=== PATIENT | female | born 1955 | race Caucasian/White ===

== ENCOUNTER 2016-07-29 17:39 | Inpatient (IN) | payer OTHER ==
[~2016-07-29] VITALS: Ht 152.4 cm; Wt 63.2 kg
[~2016-07-29 17:39] MED LIST: PERCOCET 5/31 TABLET PO; PREDNISONE10 MG PO; VALIUM5 MG PO; ZOLOFT100 MG PO
[2016-07-29 17:54] LABS: BASE EXCESS -7.7 mEq/L (-3 to +3); BICARBONATE 20.1 mEq/L (22-26); METHEMOGLOBIN 1.1 % (0-1.5); PCO2 48 mm Hg (35-45); PO2 61 mm Hg (80-100)
[2016-07-29 17:55] LABS: COMMENTS - BLOOD GASES A+C+; DEVICE MASK VENT; FI02 100 %; MODE SPONT; SITE RR; TOTAL RESP RATE 25 resp/min
[2016-07-29 17:56] LABS: pH 7.23 (7.35-7.45)
[2016-07-29 18:26] LABS: BASE EXCESS -5.6 mEq/L (-3 to +3); BICARBONATE 23.8 mEq/L (22-26); CARBOXY HGB 3.2 % (0-5); METHEMOGLOBIN 1.2 % (0-1.5); PCO2 61 mm Hg (35-45); PO2 57 mm Hg (80-100); SITE RR
[2016-07-29 18:27] LABS: COMMENTS - BLOOD GASES A+C+; DEVICE 840; FI02 100 %; MECHANICAL RATE 14 resp/min; MODE A/C; PEEP 8 CM/H20; TIDAL VOLUME 400 ML
[2016-07-29 18:36] LABS: HEMATOCRIT 45.6 % (36.0-46.0); MCH 30.1 PG (29.0-34.0); MCHC 36.2 G/DL (30.0-36.0); MCV 83.2 FL (83-99); MEAN PLAT.VOLUME 11.7 uM^3 (9.5-12.4); RBC DIS.WIDTH-CV 14.6 % (11.8-14.6); RBC DIS.WIDTH-SD 43.9 % (39-53); RED BLOOD COUNT 5.48 M/uL (3.80-5.20)
[2016-07-29 18:37] LABS: PLATELET COUNT 358 K/uL (156-360)
[2016-07-29 18:39] LABS: CHLORIDE 92 mEq/L (99-109); POTASSIUM 3.1 mEq/L (3.7-5.4); SODIUM 134 mEq/L (136-147)
[2016-07-29 18:45] LABS: GFR ESTIMATE (CALCULATED) 38 mL/min/; UREA NITROGEN (BUN) 19 mg/dL (9-23)
[2016-07-29 18:49] LABS: TROP-I INTERPRETATION POSITIVE
[2016-07-29 19:05] LABS: TROPONIN-I 59.11 ng/mL (0.0-0.30)
[2016-07-29 19:06] LABS: ANION GAP 22 MEQ/L (2-14); GLUCOSE 741 mg/dL (70-99)
[2016-07-29 20:44] LABS: PROTHROMBIN TIME 10.2 (9.2-11.2)
[2016-07-29 21:55] VITALS: BP 128/80
[2016-07-29 22:00] VITALS: BP 107/76; BP 128/80
[2016-07-29 22:15] VITALS: BP 82/63
[2016-07-29 22:46] VITALS: BP 86/50
[2016-07-29 23:15] VITALS: BP 91/72
[2016-07-29 23:21] LABS: METH RESISTANT S AUREUS PCR NEGATIVE (NEGATIVE)
[2016-07-29 23:22] LABS: PROBE CHECK PASS; SPECIMEN PROCESSING CONTROL PASS
[2016-07-30] VITALS (22 sets, daily range): BP systolic 91–143; BP diastolic 58–95
[2016-07-30 00:08] LABS: GLUCOSE 722 mg/dL (70-99)
[2016-07-30 00:19] LABS: CHLORIDE 96 mEq/L (99-109); POTASSIUM 3.2 mEq/L (3.7-5.4); SODIUM 133 mEq/L (136-147)
[2016-07-30 00:22] LABS: ANION GAP 16 MEQ/L (2-14)
[2016-07-30 00:24] LABS: GFR ESTIMATE (CALCULATED) 32 mL/min/
[2016-07-30 00:25] LABS: UREA NITROGEN (BUN) 24 mg/dL (9-23)
[2016-07-30 00:27] LABS: CREATINE KINASE 706 IU/L (1-294); TOTAL CK 706 IU/L (1-294)
[2016-07-30 00:32] LABS: CK-MB 53.4 ng/mL (0.0-4.9)
[2016-07-30 03:51] LABS: CARBON DIOXIDE (BICARBONATE) 23.4 MEQ/L (20-31)
[2016-07-30 03:55] LABS: INTER. NORMALIZED RATIO 1.1; PROTHROMBIN TIME 11.4 (9.2-11.2)
[2016-07-30 03:58] LABS: CHLORIDE 98 mEq/L (99-109); POTASSIUM 2.7 mEq/L (3.7-5.4); SODIUM 134 mEq/L (136-147)
[2016-07-30 04:02] LABS: ANION GAP 16 MEQ/L (2-14); HEMATOCRIT 38.7 % (36.0-46.0); MCH 30.1 PG (29.0-34.0); MCHC 36.4 G/DL (30.0-36.0); MCV 82.7 FL (83-99); RBC DIS.WIDTH-CV 14.4 % (11.8-14.6); RBC DIS.WIDTH-SD 42.4 % (39-53); RED BLOOD COUNT 4.68 M/uL (3.80-5.20); WHITE BLOOD COUNT 29.5 K/uL (4.1-10.2)
[2016-07-30 04:04] LABS: GFR ESTIMATE (CALCULATED) 38 mL/min/
[2016-07-30 04:05] LABS: GLUCOSE 481 mg/dL (70-99); UREA NITROGEN (BUN) 25 mg/dL (9-23)
[2016-07-30 04:23] LABS: TROP-I INTERPRETATION POSITIVE; TROPONIN-I 98.05 ng/mL (0.0-0.30)
[2016-07-30 04:47] LABS: PLATELET COUNT UNABLE TO REPORT K/uL (156-360)
[2016-07-30 04:52] LABS: POINT-OF-CARE METER ID UU13113748
[2016-07-30 07:42] LABS: POINT-OF-CARE METER ID UU13113748
[2016-07-30 07:42] LABS: POINT-OF-CARE METER ID UU13113748
[2016-07-30 07:42] LABS: POINT-OF-CARE METER ID UU13113748
[2016-07-30 07:48] LABS: Estimated Average Glucose 286 mg/dL (70-123); HEMOGLOBIN A1c (GLYCOHEMOGLOB) 11.6 % HGB (Below 5.7)
[2016-07-30 10:25] LABS: ANION GAP 17 MEQ/L (2-14); CHLORIDE 99 MEQ/L (99-109); GFR ESTIMATE (CALCULATED) 41 mL/min/; SAMPLE HEMOLYSIS CHECK 1; SAMPLE ICTERIC CHECK 0; SAMPLE LIPEMIA CHECK 0; SODIUM 137 MEQ/L (136-147); UREA NITROGEN (BUN) 24 mg/dL (9-23)
[2016-07-30 10:29] LABS: GLUCOSE 230 mg/dL (70-99); POTASSIUM 3.5 MEQ/L (3.7-5.4)
[2016-07-30] MEDS ORDERED: PREDNISONE20 MG PO (15:37)
[2016-07-30] MEDS ORDERED: PERCOCET 5/31 TABLET PO (15:37)
[2016-07-30] MEDS ORDERED: MELOXICAM7.5 MG PO (15:37)
[2016-07-30 17:16] LABS: ANION GAP 14 MEQ/L (2-14); CHLORIDE 99 MEQ/L (99-109); GFR ESTIMATE (CALCULATED) 44 mL/min/; GLUCOSE 239 mg/dL (70-99); POTASSIUM 4.1 MEQ/L (3.7-5.4); SAMPLE HEMOLYSIS CHECK 0; SAMPLE ICTERIC CHECK 0; SAMPLE LIPEMIA CHECK 0; SODIUM 138 MEQ/L (136-147); UREA NITROGEN (BUN) 23 mg/dL (9-23)
[2016-07-30 20:59] LABS: ANION GAP 12 MEQ/L (2-14); CHLORIDE 101 MEQ/L (99-109); GFR ESTIMATE (CALCULATED) 41 mL/min/; GLUCOSE 211 mg/dL (70-99); POTASSIUM 4.1 MEQ/L (3.7-5.4); SAMPLE HEMOLYSIS CHECK 0; SAMPLE ICTERIC CHECK 0; SAMPLE LIPEMIA CHECK 0; SODIUM 137 MEQ/L (136-147); UREA NITROGEN (BUN) 23 mg/dL (9-23)
[2016-07-31] VITALS (23 sets, daily range): BP systolic 94–145; BP diastolic 54–81
[2016-07-31 03:12] LABS: POINT-OF-CARE METER ID UU14174217
[2016-07-31 06:09] LABS: HEMATOCRIT 37.1 % (36.0-46.0); MCH 29.7 PG (29.0-34.0); MCHC 34.2 G/DL (30.0-36.0); RBC DIS.WIDTH-CV 14.7 % (11.8-14.6); RBC DIS.WIDTH-SD 45.7 % (39-53); RED BLOOD COUNT 4.27 M/uL (3.80-5.20)
[2016-07-31 06:10] LABS: MCV 86.9 FL (83-99)
[2016-07-31 06:46] LABS: TROP-I INTERPRETATION POSITIVE
[2016-07-31 06:54] LABS: TROPONIN-I 17.14 ng/mL (0.0-0.30)
[2016-07-31 07:24] LABS: MEAN PLAT.VOLUME 11.6 uM^3 (9.5-12.4)
[2016-07-31 07:29] LABS: PLATELET COUNT 191 K/uL (156-360)
[2016-07-31 07:39] LABS: POINT-OF-CARE METER ID UU14174217
[2016-07-31 11:07] LABS: POINT-OF-CARE METER ID UU14174217
[2016-07-31 14:56] LABS: POINT-OF-CARE METER ID UU14174217
[2016-07-31 15:23] LABS: EOSINOPHIL COUNT 0.1 K/uL (0-0.3); HEMATOCRIT 36.2 % (36.0-46.0); IMMATURE GRANULOCYTE (%) 0.4 % (0.0-0.7); IMMATURE GRANULOCYTE COUNT 0.1 K/uL; LYMPHOCYTE COUNT 2.2 K/uL (1.0-2.8); MCH 30.5 PG (29.0-34.0); MCHC 34.5 G/DL (30.0-36.0); MCV 88.3 FL (83-99); MONOCYTE (%) 7.2 % (3-12); NEUTROPHIL (%) 74.3 % (45-76); NEUTROPHIL COUNT 9.7 K/uL (1.8-6.4); PLATELET COUNT 166 K/uL (156-360); RBC DIS.WIDTH-CV 14.9 % (11.8-14.6); RBC DIS.WIDTH-SD 47.7 % (39-53); WHITE BLOOD COUNT 13.1 K/uL (4.1-10.2)
[2016-07-31 16:03] LABS: ANION GAP 19 MEQ/L (2-14); CHLORIDE 99 MEQ/L (99-109); POTASSIUM 3.3 MEQ/L (3.7-5.4); SAMPLE HEMOLYSIS CHECK 0; SAMPLE ICTERIC CHECK 0; SAMPLE LIPEMIA CHECK 0; SODIUM 142 MEQ/L (136-147)
[2016-07-31 16:11] LABS: GFR ESTIMATE (CALCULATED) 44 mL/min/; GLUCOSE 176 mg/dL (70-99); UREA NITROGEN (BUN) 25 mg/dL (9-23)
[2016-07-31 18:20] LABS: POINT-OF-CARE METER ID UU14174217
[2016-08-01] VITALS (16 sets, daily range): BP systolic 100–134; BP diastolic 50–85
[2016-08-01 00:04] LABS: POINT-OF-CARE METER ID UU14174217
[2016-08-01 02:32] LABS: POINT-OF-CARE METER ID UU14174217
[2016-08-01 03:55] LABS: EOSINOPHIL (%) 2.1 % (0-5); EOSINOPHIL COUNT 0.3 K/uL (0-0.3); HEMATOCRIT 33.9 % (36.0-46.0); IMMATURE GRANULOCYTE (%) 0.3 % (0.0-0.7); IMMATURE GRANULOCYTE COUNT 0.4 K/uL; LYMPHOCYTE COUNT 2.2 K/uL (1.0-2.8); MCH 30.2 PG (29.0-34.0); MCHC 34.5 G/DL (30.0-36.0); MCV 87.4 FL (83-99); MEAN PLAT.VOLUME 11.1 uM^3 (9.5-12.4); MONOCYTE COUNT 0.9 K/uL (0-0.8); NEUTROPHIL (%) 74.1 % (45-76); NEUTROPHIL COUNT 9.8 K/uL (1.8-6.4); PLATELET COUNT 163 K/uL (156-360); RBC DIS.WIDTH-CV 14.6 % (11.8-14.6); RBC DIS.WIDTH-SD 45.7 % (39-53); RED BLOOD COUNT 3.88 M/uL (3.80-5.20); WHITE BLOOD COUNT 13.2 K/uL (4.1-10.2)
[2016-08-01 04:12] LABS: CHLORIDE 101 mEq/L (99-109); POTASSIUM 3.2 mEq/L (3.7-5.4); SODIUM 142 mEq/L (136-147)
[2016-08-01 04:20] LABS: MAGNESIUM 1.8 mg/dL (1.3-2.7)
[2016-08-01 04:22] LABS: GLUCOSE 162 mg/dL (70-99)
[2016-08-01 04:23] LABS: ANION GAP 15 MEQ/L (2-14)
[2016-08-01 04:26] LABS: GFR ESTIMATE (CALCULATED) 41 mL/min/; UREA NITROGEN (BUN) 25 mg/dL (9-23)
[2016-08-01 05:55] LABS: POINT-OF-CARE METER ID UU14174217
[2016-08-01 08:12] LABS: POINT-OF-CARE METER ID UU14174217
[2016-08-01 12:38] LABS: POINT-OF-CARE METER ID UU13113803; POINT-OF-CARE USER ID 606021424
[2016-08-01 18:04] LABS: POINT-OF-CARE METER ID UU14174217
[2016-08-01 21:39] LABS: POINT-OF-CARE METER ID UU14174217
[2016-08-02] VITALS (10 sets, daily range): BP systolic 94–134; BP diastolic 45–66
[2016-08-02 06:20] LABS: EOSINOPHIL (%) 2.5 % (0-5); EOSINOPHIL COUNT 0.3 K/uL (0-0.3); HEMATOCRIT 34.3 % (36.0-46.0); IMMATURE GRANULOCYTE (%) 0.4 % (0.0-0.7); LYMPHOCYTE COUNT 1.8 K/uL (1.0-2.8); MCH 29.2 PG (29.0-34.0); MCHC 32.9 G/DL (30.0-36.0); MCV 88.6 FL (83-99); MEAN PLAT.VOLUME 11.4 uM^3 (9.5-12.4); MONOCYTE (%) 9.6 % (3-12); NEUTROPHIL (%) 70.5 % (45-76); NEUTROPHIL COUNT 7.5 K/uL (1.8-6.4); PLATELET COUNT 168 K/uL (156-360); RBC DIS.WIDTH-CV 14.5 % (11.8-14.6); RBC DIS.WIDTH-SD 47.1 % (39-53); RED BLOOD COUNT 3.87 M/uL (3.80-5.20); WHITE BLOOD COUNT 10.7 K/uL (4.1-10.2)
[2016-08-02 06:37] LABS: ANION GAP 11 MEQ/L (2-14); CHLORIDE 99 MEQ/L (99-109); GFR ESTIMATE (CALCULATED) 49 mL/min/; GLUCOSE 164 mg/dL (70-99); MAGNESIUM 1.5 mg/dl (1.3-2.7); SAMPLE HEMOLYSIS CHECK 0; SAMPLE ICTERIC CHECK 0; SAMPLE LIPEMIA CHECK 0; SODIUM 138 MEQ/L (136-147); UREA NITROGEN (BUN) 19 mg/dL (9-23)
[2016-08-02 06:38] LABS: POTASSIUM 4.1 MEQ/L (3.7-5.4)
[2016-08-03] VITALS (7 sets, daily range): BP systolic 95–134; BP diastolic 50–70
[2016-08-03 06:59] LABS: EOSINOPHIL (%) 4.4 % (0-5); EOSINOPHIL COUNT 0.4 K/uL (0-0.3); HEMATOCRIT 30.4 % (36.0-46.0); IMMATURE GRANULOCYTE (%) 0.4 % (0.0-0.7); LYMPHOCYTE COUNT 2.6 K/uL (1.0-2.8); MCH 29.5 PG (29.0-34.0); MCHC 33.2 G/DL (30.0-36.0); MCV 88.9 FL (83-99); MONOCYTE COUNT 0.8 K/uL (0-0.8); NEUTROPHIL COUNT 4.8 K/uL (1.8-6.4); PLATELET COUNT 176 K/uL (156-360); RBC DIS.WIDTH-CV 14.5 % (11.8-14.6); RBC DIS.WIDTH-SD 47.1 % (39-53); RED BLOOD COUNT 3.42 M/uL (3.80-5.20); WHITE BLOOD COUNT 8.6 K/uL (4.1-10.2)
[2016-08-03 07:21] LABS: ANION GAP 9 MEQ/L (2-14); CHLORIDE 101 MEQ/L (99-109); GFR ESTIMATE (CALCULATED) 49 mL/min/; GLUCOSE 139 mg/dL (70-99); MAGNESIUM 1.5 mg/dl (1.3-2.7); POTASSIUM 3.5 MEQ/L (3.7-5.4); SAMPLE HEMOLYSIS CHECK 0; SAMPLE ICTERIC CHECK 0; SAMPLE LIPEMIA CHECK 0; SODIUM 139 MEQ/L (136-147); UREA NITROGEN (BUN) 16 mg/dL (9-23)
[2016-08-03 07:51] LABS: POINT-OF-CARE METER ID UU14174225
[2016-08-03 17:33] LABS: POINT-OF-CARE METER ID UU14174225
[2016-08-03 22:15] LABS: POINT-OF-CARE METER ID UU14174225
[2016-08-04 00:27] VITALS: BP 122/66
[2016-08-04 04:12] VITALS: BP 120/73
[2016-08-04 07:01] LABS: BASOPHIL COUNT 0.1 K/uL (0-0.1); EOSINOPHIL (%) 4.3 % (0-5); EOSINOPHIL COUNT 0.3 K/uL (0-0.3); HEMATOCRIT 31.9 % (36.0-46.0); IMMATURE GRANULOCYTE (%) 0.4 % (0.0-0.7); LYMPHOCYTE COUNT 2.2 K/uL (1.0-2.8); MCH 30.1 PG (29.0-34.0); MCHC 33.5 G/DL (30.0-36.0); MCV 89.6 FL (83-99); MEAN PLAT.VOLUME 11.5 uM^3 (9.5-12.4); MONOCYTE (%) 8.3 % (3-12); MONOCYTE COUNT 0.6 K/uL (0-0.8); NEUTROPHIL (%) 55.9 % (45-76); NEUTROPHIL COUNT 4.1 K/uL (1.8-6.4); PLATELET COUNT 193 K/uL (156-360); RBC DIS.WIDTH-CV 14.4 % (11.8-14.6); RBC DIS.WIDTH-SD 46.9 % (39-53); RED BLOOD COUNT 3.56 M/uL (3.80-5.20); WHITE BLOOD COUNT 7.4 K/uL (4.1-10.2)
[2016-08-04 07:29] LABS: ANION GAP 8 MEQ/L (2-14); CHLORIDE 104 MEQ/L (99-109); GFR ESTIMATE (CALCULATED) 49 mL/min/; GLUCOSE 154 mg/dL (70-99); MAGNESIUM 1.7 mg/dl (1.3-2.7); POTASSIUM 4.1 MEQ/L (3.7-5.4); SAMPLE HEMOLYSIS CHECK 0; SAMPLE ICTERIC CHECK 0; SAMPLE LIPEMIA CHECK 0; SODIUM 140 MEQ/L (136-147); UREA NITROGEN (BUN) 12 mg/dL (9-23)
[2016-08-04 08:45] VITALS: BP 121/65
[2016-08-04 12:45] VITALS: BP 131/72
[2016-08-04 16:55] VITALS: BP 141/79
[2016-08-04 19:49] VITALS: BP 123/71
[2016-08-04 21:43] LABS: POINT-OF-CARE METER ID UU14174225
[2016-08-05 00:37] VITALS: BP 120/68
[2016-08-05 04:02] VITALS: BP 127/73
[2016-08-05 06:58] LABS: HEMATOCRIT 33.4 % (36.0-46.0); MCH 30.5 PG (29.0-34.0); MCHC 33.5 G/DL (30.0-36.0); MEAN PLAT.VOLUME 11.3 uM^3 (9.5-12.4); PLATELET COUNT 217 K/uL (156-360); RBC DIS.WIDTH-CV 14.5 % (11.8-14.6); RBC DIS.WIDTH-SD 47.6 % (39-53); RED BLOOD COUNT 3.67 M/uL (3.80-5.20); WHITE BLOOD COUNT 8.1 K/uL (4.1-10.2)
[2016-08-05 07:28] LABS: ANION GAP 9 MEQ/L (2-14); CHLORIDE 105 MEQ/L (99-109); GFR ESTIMATE (CALCULATED) 54 mL/min/; GLUCOSE 137 mg/dL (70-99); SAMPLE HEMOLYSIS CHECK 0; SAMPLE ICTERIC CHECK 0; SAMPLE LIPEMIA CHECK 0; SODIUM 142 MEQ/L (136-147); UREA NITROGEN (BUN) 11 mg/dL (9-23)
[2016-08-05 08:00] VITALS: BP 155/71
[2016-08-05 08:08] LABS: POINT-OF-CARE METER ID UU14174225
[2016-08-05 12:00] VITALS: BP 136/63
[2016-08-05 12:50] LABS: POINT-OF-CARE METER ID UU14174225
[2016-08-05 16:00] VITALS: BP 121/56
[2016-08-05 19:33] VITALS: BP 141/79
[2016-08-05 21:16] LABS: POINT-OF-CARE METER ID UU14174225
[2016-08-06 00:14] VITALS: BP 149/72
[2016-08-06 04:27] VITALS: BP 139/76
[2016-08-06 07:53] LABS: POINT-OF-CARE METER ID UU14174225
[2016-08-06 08:02] VITALS: BP 131/64
[2016-08-06 08:26] LABS: ANION GAP 12 MEQ/L (2-14); CHLORIDE 102 MEQ/L (99-109); GFR ESTIMATE (CALCULATED) 54 mL/min/; GLUCOSE 176 mg/dL (70-99); POTASSIUM 4.1 MEQ/L (3.7-5.4); SAMPLE HEMOLYSIS CHECK 0; SAMPLE ICTERIC CHECK 0; SAMPLE LIPEMIA CHECK 0; SODIUM 140 MEQ/L (136-147); UREA NITROGEN (BUN) 11 mg/dL (9-23)
[2016-08-06 11:04] VITALS: BP 125/64
[2016-08-06 11:04] LABS: POINT-OF-CARE METER ID UU14174225
[2016-08-06] MEDS ORDERED: NICOTINE PATCH1 EAC2 TD (16:10)
[2016-08-06] MEDS ORDERED: IMDUR30 MG PO (16:10)
[2016-08-06] MEDS ORDERED: NITROSTAT0.4 MG SL (16:10)
[2016-08-06] MEDS ORDERED: CLOPIDOGREL75 MG PO (16:10)
[2016-08-06] MEDS ORDERED: LOPRESSOR50 MG PO (16:11)
[2016-08-06] MEDS ORDERED: ASPIRIN81 M2 PO (16:11)
[2016-08-06] MEDS ORDERED: FUROSEMIDE40 MG PO (16:12)
[2016-08-06] MEDS ORDERED: K-DUR20 MEQ PO (16:12)
[2016-08-06] MEDS ORDERED: MELOXICAM7.5 MG PO (16:12)
[2016-08-06 16:13] LABS: POINT-OF-CARE METER ID UU14174225
[2016-08-06] MEDS ORDERED: CEFTIN500 MG PO (16:20)
== END 2016-08-06 18:07 | disposition home health service (06) | DRG 189 ==
LOC: EME 17:39 → 4WEST 19:44 → EDOF 19:44 → 4WEST 22:05 → 5SOUTH 08-02 16:02
PROVIDERS: Emergency Medicine; Hospitalist; Internal Medicine; Internal Medicine Cardiovascular Disease; Internal Medicine Critical Care Medicine; Internal Medicine Nephrology
DX: J96.01 Acute respiratory failure with hypoxia (principal); I21.4 Non-ST elevation (NSTEMI) myocardial infarction; J18.9 Pneumonia, unspecified organism; J81.0 Acute pulmonary edema; N17.9 Acute kidney failure, unspecified; I48.92 Unspecified atrial flutter; E11.22 Type 2 diabetes mellitus with diabetic chronic kidney disease; E87.6 Hypokalemia; I50.9 Heart failure, unspecified; J44.9 Chronic obstructive pulmonary disease, unspecified; I12.9 Hypertensive chronic kidney disease with stage 1 through stage 4 chronic kidney disease, or unspecified chronic kidney disease; N18.9 Chronic kidney disease, unspecified; F17.210 Nicotine dependence, cigarettes, uncomplicated; I25.5 Ischemic cardiomyopathy; I73.9 Peripheral vascular disease, unspecified; J84.10 Pulmonary fibrosis, unspecified; Z95.5 Presence of coronary angioplasty implant and graft
CPT/HCPCS: 36600; 71010; 80048; 80048 91; 80202; 82009; 82550 91; 82553; 82803; 82948; 83036; 83605; 83735; 83880; 84100; 84484; 84999; 85025; 85027; 85610; 85730; 87040; 87070; 87205; 87641; 93005; 93306; 94002; 94003; 94640; 94640 76; 94760; 94799; 99202; 99281; 99285; G0008; J0456; J0696; J1250; J1644; J1815; J1940; J2543; J2704; J3010; J3370; J3475; J3480; J7050; S0028

== ENCOUNTER 2016-10-11 08:37 | Inpatient (IN) | payer OTHER ==
[~2016-10-11] VITALS: Ht 152.4 cm; Wt 58.1 kg
[~2016-10-11 08:37] MED LIST changes: +ASPIRIN81 M2 PO; +CEFTIN500 MG PO; +CLOPIDOGREL75 MG PO; +FUROSEMIDE40 MG PO; +IMDUR30 MG PO; +K-DUR20 MEQ PO; +LOPRESSOR50 MG PO; +MELOXICAM7.5 MG PO; +NICOTINE PATCH1 EAC2 TD; +NITROSTAT0.4 MG SL; +PREDNISONE20 MG PO
[2016-10-11 12:30] VITALS: BP 140/58
[2016-10-11 12:59] LABS: POINT-OF-CARE METER ID UU13113720
[2016-10-11] MEDS ORDERED: LOPRESSOR25 MG PO (13:52)
[2016-10-11] MEDS ORDERED: HEPARIN SO5000 UNITS SC (13:54)
[2016-10-11] MEDS ORDERED: NOVOLOG PE100 UNITS/ SC (13:55)
[2016-10-11] MEDS ORDERED: LANTUS 3 M100 UNITS1 SC (13:56)
[2016-10-11] MEDS ORDERED: POLYETHYLENE GL17 GM PO (13:57)
[2016-10-11] MEDS ORDERED: LIDOCAINE700 MG TD (13:57)
[2016-10-11] MEDS ORDERED: ROSUVASTATIN CA40 MG PO (13:58)
[2016-10-11] MEDS ORDERED: ZOLOFT100 MG PO (13:59)
[2016-10-11] MEDS ORDERED: TYLENOL REGULA325 MG PO (14:02)
[2016-10-11 15:47] VITALS: BP 140/62
[2016-10-11 16:33] LABS: POINT-OF-CARE METER ID UU14174215
[2016-10-11 21:36] LABS: POINT-OF-CARE METER ID UU14174215
[2016-10-12 04:06] LABS: HEMATOCRIT 29.9 % (36.0-46.0); MCHC 31.4 G/DL (30.0-36.0); MCV 92.3 FL (83-99); MEAN PLAT.VOLUME 10.9 uM^3 (9.5-12.4); PLATELET COUNT 263 K/uL (156-360); RBC DIS.WIDTH-SD 49.9 % (39-53); RED BLOOD COUNT 3.24 M/uL (3.80-5.20); WHITE BLOOD COUNT 11.1 K/uL (4.1-10.2)
[2016-10-12 04:17] LABS: CHLORIDE 101 mEq/L (99-109); POTASSIUM 4.6 mEq/L (3.7-5.4); SODIUM 137 mEq/L (136-147)
[2016-10-12 04:20] LABS: GLUCOSE 162 mg/dL (70-99)
[2016-10-12 04:21] LABS: ANION GAP 11 MEQ/L (2-14)
[2016-10-12 04:22] LABS: TOTAL BILIRUBIN 0.6 mg/dL (0.0-1.0)
[2016-10-12 04:23] LABS: ALKALINE PHOSPHATASE 87 IU/L (3-129); GFR ESTIMATE (CALCULATED) 38 mL/min/
[2016-10-12 04:24] LABS: UREA NITROGEN (BUN) 26 mg/dL (9-23)
[2016-10-12 04:53] VITALS: BP 125/62
[2016-10-12 07:19] LABS: POINT-OF-CARE METER ID UU13113720; POINT-OF-CARE USER ID AHSSSJB31
[2016-10-12 12:05] LABS: POINT-OF-CARE METER ID UU13113720; POINT-OF-CARE USER ID AHSSSJB31
[2016-10-12 15:00] VITALS: BP 105/58
[2016-10-12 16:34] LABS: POINT-OF-CARE METER ID UU13113720
[2016-10-12 20:58] VITALS: BP 114/57
[2016-10-12 21:19] LABS: POINT-OF-CARE METER ID UU13113720
[2016-10-13 04:55] VITALS: BP 123/63
[2016-10-13 07:38] VITALS: BP 134/65
[2016-10-13 07:40] LABS: POINT-OF-CARE METER ID UU13113720
[2016-10-13 11:42] LABS: POINT-OF-CARE METER ID UU13113720
[2016-10-13 15:25] VITALS: BP 108/56
[2016-10-13 16:25] LABS: POINT-OF-CARE METER ID UU13113720
[2016-10-13 21:54] LABS: POINT-OF-CARE METER ID UU14174215
[2016-10-14 05:46] VITALS: BP 119/59
[2016-10-14 06:28] LABS: POINT-OF-CARE METER ID UU14174215
[2016-10-14 07:35] LABS: POINT-OF-CARE METER ID UU13113720
[2016-10-14 11:00] LABS: POINT-OF-CARE METER ID UU14174215
[2016-10-14 15:28] VITALS: BP 116/60
[2016-10-14 21:20] LABS: POINT-OF-CARE METER ID UU14174215; POINT-OF-CARE USER ID 610211320
[2016-10-15 05:16] LABS: POINT-OF-CARE METER ID UU14174215
[2016-10-15 05:22] LABS: BASE EXCESS -0.4 mEq/L (-3 to +3); BICARBONATE 24.1 mEq/L (22-26); CARBOXY HGB 2.6 % (0-5); COMMENTS - BLOOD GASES C+; DEVICE VM; FI02 50 %; METHEMOGLOBIN 1.7 % (0-1.5); PCO2 38 mm Hg (35-45); PO2 46 mm Hg (80-100); SITE RR; pH 7.41 (7.35-7.45)
[2016-10-15 05:42] VITALS: BP 133/93
[2016-10-15 06:04] LABS: TROP-I INTERPRETATION POSITIVE; TROPONIN-I 2.23 ng/mL (0.0-0.30)
[2016-10-15 06:21] LABS: HEMATOCRIT 26.5 % (36.0-46.0); MCH 29.2 PG (29.0-34.0); MCHC 31.7 G/DL (30.0-36.0); MEAN PLAT.VOLUME 10.6 uM^3 (9.5-12.4); RBC DIS.WIDTH-CV 15.2 % (11.8-14.6); RBC DIS.WIDTH-SD 51.3 % (39-53); RED BLOOD COUNT 2.88 M/uL (3.80-5.20)
[2016-10-15 06:43] LABS: PLATELET COUNT 371 K/uL (156-360); WHITE BLOOD COUNT 17.2 K/uL (4.1-10.2)
[2016-10-15 07:54] LABS: ALKALINE PHOSPHATASE 86 IU/L (3-129); ANION GAP 14 MEQ/L (2-14); CHLORIDE 98 MEQ/L (99-109); DIRECT BILIRUBIN 0.3 mg/dL (0.0-0.3); GFR ESTIMATE (CALCULATED) 29 mL/min/; GLUCOSE 121 mg/dL (70-99); POTASSIUM 4.7 MEQ/L (3.7-5.4); SAMPLE HEMOLYSIS CHECK 0; SAMPLE ICTERIC CHECK 0; SAMPLE LIPEMIA CHECK 0; SODIUM 135 MEQ/L (136-147); TOTAL BILIRUBIN 0.6 MG/DL (0.0-1.0); UREA NITROGEN (BUN) 34 mg/dL (9-23)
[2016-10-15] MEDS ORDERED: PLAVIX75 MG PO (11:42)
[2016-10-15] MEDS ORDERED: IMDUR30 MG PO (11:43)
[2016-10-15] MEDS ORDERED: LO-DOSE ASPIRIN81 M2 PO (11:44)
[2016-10-15] MEDS ORDERED: BASAGLAR K100 UNIT/1 SC (11:48)
[2016-10-15 13:46] LABS: POINT-OF-CARE METER ID UU13113720
== END 2016-10-15 05:53 | DRG 945 ==
LOC: 3WEST 08:37
PROVIDERS: Hospitalist; Physical Medicine & Rehabilitation Pain Medicine
PROC: F07M0ZZ Range of Motion and Joint Mobility Treatment of Musculoskeletal System - Whole Body (ICD-10-PCS; principal; 2016-10-11)
DX: R53.1 Weakness (principal); D62 Acute posthemorrhagic anemia; I13.0 Hypertensive heart and chronic kidney disease with heart failure and stage 1 through stage 4 chronic kidney disease, or unspecified chronic kidney disease; J95.89 Other postprocedural complications and disorders of respiratory system, not elsewhere classified; Z95.1 Presence of aortocoronary bypass graft; R09.02 Hypoxemia; I50.9 Heart failure, unspecified; J44.9 Chronic obstructive pulmonary disease, unspecified; J98.6 Disorders of diaphragm; Z87.891 Personal history of nicotine dependence; E11.22 Type 2 diabetes mellitus with diabetic chronic kidney disease; E78.5 Hyperlipidemia, unspecified; G89.18 Other acute postprocedural pain; E83.51 Hypocalcemia; I25.2 Old myocardial infarction; N18.3 Chronic kidney disease, stage 3 (moderate); I73.9 Peripheral vascular disease, unspecified; I25.5 Ischemic cardiomyopathy; I25.118 Atherosclerotic heart disease of native coronary artery with other forms of angina pectoris; Y83.2 Surgical operation with anastomosis, bypass or graft as the cause of abnormal reaction of the patient, or of later complication, without mention of misadventure at the time of the procedure
CPT/HCPCS: 36600; 71010; 76000; 80048; 80053; 80076; 82803; 82948; 83605; 84484; 85027; 87040; 94640; 94640 76; 94799; 97110 GO; 97530 GP; 99202; J1644; J1815

== ENCOUNTER 2016-10-15 05:18 | Inpatient (IN) | payer OTHER ==
[~2016-10-15] VITALS: Ht 152.4 cm; Wt 51.3 kg
[~2016-10-15 05:18] MED LIST changes: +HEPARIN SO5000 UNITS SC; +LANTUS 3 M100 UNITS1 SC; +LIDOCAINE700 MG TD; +LOPRESSOR25 MG PO; +NOVOLOG PE100 UNITS/ SC; +POLYETHYLENE GL17 GM PO; +ROSUVASTATIN CA40 MG PO; +TYLENOL REGULA325 MG PO
[2016-10-15 07:00] VITALS: BP 148/68
[2016-10-15 07:17] VITALS: BP 152/72
[2016-10-15 08:37] LABS: BASOPHIL COUNT 0.1 K/uL (0-0.1); EOSINOPHIL (%) 0.2 % (0-5); HEMATOCRIT 26.9 % (36.0-46.0); IMMATURE GRANULOCYTE (%) 0.8 % (0.0-0.7); IMMATURE GRANULOCYTE COUNT 0.1 K/uL; INSTRUMENT ABS NEUTROPHIL CT 15.2 K/uL; LYMPHOCYTE COUNT 0.9 K/uL (1.0-2.8); MCH 28.9 PG (29.0-34.0); MCHC 31.6 G/DL (30.0-36.0); MCV 91.5 FL (83-99); MEAN PLAT.VOLUME 10.3 uM^3 (9.5-12.4); MONOCYTE (%) 5.3 % (3-12); MONOCYTE COUNT 0.9 K/uL (0-0.8); NEUTROPHIL (%) 88.2 % (45-76); NEUTROPHIL COUNT 15.2 K/uL (1.8-6.4); PLATELET COUNT 360 K/uL (156-360); RBC DIS.WIDTH-CV 15.2 % (11.8-14.6); RED BLOOD COUNT 2.94 M/uL (3.80-5.20); WHITE BLOOD COUNT 17.2 K/uL (4.1-10.2)
[2016-10-15 08:55] LABS: ANION GAP 12 MEQ/L (2-14); CHLORIDE 98 MEQ/L (99-109); POTASSIUM 4.6 MEQ/L (3.7-5.4); SAMPLE HEMOLYSIS CHECK 0; SAMPLE ICTERIC CHECK 0; SAMPLE LIPEMIA CHECK 0; SODIUM 135 MEQ/L (136-147); TOTAL BILIRUBIN 0.6 MG/DL (0.0-1.0)
[2016-10-15 09:00] LABS: ALKALINE PHOSPHATASE 88 IU/L (3-129); GFR ESTIMATE (CALCULATED) 30 mL/min/; GLUCOSE 143 mg/dL (70-99); UREA NITROGEN (BUN) 33 mg/dL (9-23)
[2016-10-15 11:26] VITALS: BP 137/58
[2016-10-15] MEDS ORDERED: PLAVIX75 MG PO (11:42)
[2016-10-15] MEDS ORDERED: IMDUR30 MG PO (11:43)
[2016-10-15] MEDS ORDERED: LO-DOSE ASPIRIN81 M2 PO (11:44)
[2016-10-15] MEDS ORDERED: BASAGLAR K100 UNIT/1 SC (11:48)
[2016-10-15 13:39] LABS: TROP-I INTERPRETATION POSITIVE; TROPONIN-I 2.15 ng/mL (0.0-0.30)
[2016-10-15 15:33] VITALS: BP 110/75
[2016-10-15 16:08] LABS: POINT-OF-CARE METER ID UU13113698
[2016-10-15 18:57] LABS: TROP-I INTERPRETATION POSITIVE; TROPONIN-I 1.85 ng/mL (0.0-0.30)
[2016-10-15 19:17] VITALS: BP 111/55
[2016-10-15 21:23] LABS: POINT-OF-CARE METER ID UU14174216
[2016-10-15 23:30] VITALS: BP 144/63
[2016-10-16 01:10] LABS: TROP-I INTERPRETATION POSITIVE
[2016-10-16 04:10] VITALS: BP 112/55
[2016-10-16 07:23] LABS: EOSINOPHIL (%) 0.2 % (0-5); HEMATOCRIT 24.5 % (36.0-46.0); IMMATURE GRANULOCYTE (%) 0.9 % (0.0-0.7); IMMATURE GRANULOCYTE COUNT 0.1 K/uL; INSTRUMENT ABS NEUTROPHIL CT 13.8 K/uL; LYMPHOCYTE COUNT 1.3 K/uL (1.0-2.8); MCH 28.3 PG (29.0-34.0); MCV 91.1 FL (83-99); MEAN PLAT.VOLUME 10.6 uM^3 (9.5-12.4); MONOCYTE (%) 5.9 % (3-12); NEUTROPHIL (%) 84.9 % (45-76); NEUTROPHIL COUNT 13.8 K/uL (1.8-6.4); PLATELET COUNT 380 K/uL (156-360); RBC DIS.WIDTH-CV 15.1 % (11.8-14.6); RBC DIS.WIDTH-SD 49.6 % (39-53); RED BLOOD COUNT 2.69 M/uL (3.80-5.20); WHITE BLOOD COUNT 16.2 K/uL (4.1-10.2)
[2016-10-16 07:42] LABS: ANION GAP 12 MEQ/L (2-14); CHLORIDE 99 MEQ/L (99-109); GFR ESTIMATE (CALCULATED) 30 mL/min/; GLUCOSE 174 mg/dL (70-99); POTASSIUM 4.4 MEQ/L (3.7-5.4); SAMPLE HEMOLYSIS CHECK 0; SAMPLE ICTERIC CHECK 0; SAMPLE LIPEMIA CHECK 0; SODIUM 137 MEQ/L (136-147); UREA NITROGEN (BUN) 39 mg/dL (9-23)
[2016-10-16 08:00] VITALS: BP 118/59
[2016-10-16 12:00] VITALS: BP 124/79
[2016-10-16 17:27] VITALS: BP 128/72
[2016-10-16 19:43] VITALS: BP 122/59
[2016-10-16 21:42] LABS: POINT-OF-CARE METER ID UU13113698
[2016-10-16 23:30] VITALS: BP 107/55
[2016-10-17] VITALS (7 sets, daily range): BP systolic 109–122; BP diastolic 54–72
[2016-10-17 07:33] LABS: POINT-OF-CARE METER ID UU13113781
[2016-10-17 08:13] LABS: EOSINOPHIL (%) 0 % (0-5); HEMATOCRIT 25.2 % (36.0-46.0); IMMATURE GRANULOCYTE (%) 0.7 % (0.0-0.7); IMMATURE GRANULOCYTE COUNT 0.1 K/uL; INSTRUMENT ABS NEUTROPHIL CT 9.7 K/uL; LYMPHOCYTE COUNT 0.9 K/uL (1.0-2.8); MCH 28.3 PG (29.0-34.0); MCHC 30.6 G/DL (30.0-36.0); MCV 92.6 FL (83-99); MEAN PLAT.VOLUME 10.6 uM^3 (9.5-12.4); MONOCYTE (%) 4.8 % (3-12); MONOCYTE COUNT 0.5 K/uL (0-0.8); NEUTROPHIL (%) 86.2 % (45-76); NEUTROPHIL COUNT 9.7 K/uL (1.8-6.4); PLATELET COUNT 365 K/uL (156-360); RBC DIS.WIDTH-CV 14.9 % (11.8-14.6); RBC DIS.WIDTH-SD 50.1 % (39-53); RED BLOOD COUNT 2.72 M/uL (3.80-5.20); WHITE BLOOD COUNT 11.3 K/uL (4.1-10.2)
[2016-10-17 08:24] LABS: ANION GAP 15 MEQ/L (2-14); CHLORIDE 103 MEQ/L (99-109); GFR ESTIMATE (CALCULATED) 29 mL/min/; GLUCOSE 216 mg/dL (70-99); POTASSIUM 4.6 MEQ/L (3.7-5.4); SAMPLE HEMOLYSIS CHECK 0; SAMPLE ICTERIC CHECK 0; SAMPLE LIPEMIA CHECK 0; SODIUM 141 MEQ/L (136-147); UREA NITROGEN (BUN) 45 mg/dL (9-23)
[2016-10-17 11:18] LABS: POINT-OF-CARE METER ID UU13113781
[2016-10-17 16:29] LABS: POINT-OF-CARE METER ID UU13113781
[2016-10-17 20:03] LABS: METH RESISTANT S AUREUS PCR POSITIVE (NEGATIVE); PROBE CHECK PASS
[2016-10-18 04:00] VITALS: BP 134/63
[2016-10-18 07:09] LABS: EOSINOPHIL (%) 0 % (0-5); HEMATOCRIT 25.8 % (36.0-46.0); IMMATURE GRANULOCYTE (%) 0.8 % (0.0-0.7); IMMATURE GRANULOCYTE COUNT 0.1 K/uL; INSTRUMENT ABS NEUTROPHIL CT 12.1 K/uL; MCH 28.1 PG (29.0-34.0); MCHC 30.6 G/DL (30.0-36.0); MCV 91.8 FL (83-99); MEAN PLAT.VOLUME 10.7 uM^3 (9.5-12.4); MONOCYTE (%) 4.8 % (3-12); MONOCYTE COUNT 0.7 K/uL (0-0.8); NEUTROPHIL (%) 87.3 % (45-76); NEUTROPHIL COUNT 12.1 K/uL (1.8-6.4); PLATELET COUNT 438 K/uL (156-360); RBC DIS.WIDTH-CV 14.9 % (11.8-14.6); RBC DIS.WIDTH-SD 49.9 % (39-53); RED BLOOD COUNT 2.81 M/uL (3.80-5.20); WHITE BLOOD COUNT 13.8 K/uL (4.1-10.2)
[2016-10-18 07:26] VITALS: BP 132/65
[2016-10-18 07:34] LABS: ANION GAP 15 MEQ/L (2-14); CHLORIDE 104 MEQ/L (99-109); GFR ESTIMATE (CALCULATED) 27 mL/min/; GLUCOSE 278 mg/dL (70-99); POTASSIUM 4.4 MEQ/L (3.7-5.4); SAMPLE HEMOLYSIS CHECK 0; SAMPLE ICTERIC CHECK 0; SAMPLE LIPEMIA CHECK 0; SODIUM 142 MEQ/L (136-147); UREA NITROGEN (BUN) 50 mg/dL (9-23)
[2016-10-18 11:07] VITALS: BP 130/60
[2016-10-18 11:40] LABS: POINT-OF-CARE METER ID UU14174216
[2016-10-18 19:52] LABS: ADD MIUA? YES; BILIRUBIN NEGATIVE; BLOOD NEGATIVE; COLOR YELLOW ((YELLOW)); GLUCOSE (STRIP) NEGATIVE; KETONES NEGATIVE; LEUKOCYTES NEGATIVE; NITRITE NEGATIVE; PROTEIN (STRIP) 30; SPECIFIC GRAVITY 1.021 (1.000-1.030); UROBILINOGEN 0.2 MG/DL (0.2-1.0)
[2016-10-18 20:00] VITALS: BP 96/50
[2016-10-18 20:14] LABS: BACTERIA NONE SEEN /HPF; EPITHELIAL CELLS 1+ /HPF; HYALINE CASTS 0-5 /LPF; MUCUS TRACE /LPF; RED BLOOD CELLS 0-5 /HPF (0-5); WHITE BLOOD CELLS 0-5 /HPF (0-5)
[2016-10-18 20:28] LABS: UR CREATININE CONCENTRATION 87.1 MG/DL
[2016-10-18 21:51] LABS: POINT-OF-CARE METER ID UU14174216
[2016-10-18 23:55] VITALS: BP 122/60
[2016-10-19 04:00] VITALS: BP 124/64
[2016-10-19 06:58] LABS: EOSINOPHIL (%) 0.1 % (0-5); HEMATOCRIT 27.6 % (36.0-46.0); IMMATURE GRANULOCYTE (%) 0.9 % (0.0-0.7); IMMATURE GRANULOCYTE COUNT 0.1 K/uL; INSTRUMENT ABS NEUTROPHIL CT 11.6 K/uL; MCHC 30.8 G/DL (30.0-36.0); MCV 90.8 FL (83-99); MEAN PLAT.VOLUME 10.5 uM^3 (9.5-12.4); MONOCYTE (%) 4.3 % (3-12); MONOCYTE COUNT 0.6 K/uL (0-0.8); NEUTROPHIL (%) 86.9 % (45-76); NEUTROPHIL COUNT 11.6 K/uL (1.8-6.4); NRBC (%) 0.1 /100 WBC (0-0); PLATELET COUNT 510 K/uL (156-360); RBC DIS.WIDTH-CV 14.8 % (11.8-14.6); RBC DIS.WIDTH-SD 49.1 % (39-53); RED BLOOD COUNT 3.04 M/uL (3.80-5.20); WHITE BLOOD COUNT 13.4 K/uL (4.1-10.2)
[2016-10-19 07:30] VITALS: BP 120/62
[2016-10-19 07:35] LABS: POINT-OF-CARE METER ID UU14174216
[2016-10-19 07:35] LABS: ANION GAP 11 MEQ/L (2-14); CHLORIDE 104 MEQ/L (99-109); GFR ESTIMATE (CALCULATED) 30 mL/min/; GLUCOSE 213 mg/dL (70-99); MAGNESIUM 2.3 mg/dl (1.3-2.7); POTASSIUM 4.4 MEQ/L (3.7-5.4); SAMPLE HEMOLYSIS CHECK 0; SAMPLE ICTERIC CHECK 0; SAMPLE LIPEMIA CHECK 0; SODIUM 140 MEQ/L (136-147); UREA NITROGEN (BUN) 55 mg/dL (9-23); URIC ACID 6.6 mg/dL (3.1-9.2)
[2016-10-19 11:30] VITALS: BP 114/64
[2016-10-19 11:31] LABS: POINT-OF-CARE METER ID UU14174216
[2016-10-19 16:35] LABS: POINT-OF-CARE METER ID UU14174216
[2016-10-19 16:42] VITALS: BP 112/68
[2016-10-19 20:00] VITALS: BP 126/60
[2016-10-19 21:13] LABS: POINT-OF-CARE METER ID UU14174216
[2016-10-19 23:55] VITALS: BP 118/60
[2016-10-20 04:00] VITALS: BP 116/64
[2016-10-20 07:08] LABS: EOSINOPHIL (%) 0.1 % (0-5); IMMATURE GRANULOCYTE (%) 0.8 % (0.0-0.7); IMMATURE GRANULOCYTE COUNT 0.1 K/uL; INSTRUMENT ABS NEUTROPHIL CT 10.4 K/uL; LYMPHOCYTE COUNT 0.9 K/uL (1.0-2.8); MCH 27.8 PG (29.0-34.0); MCV 92.6 FL (83-99); MEAN PLAT.VOLUME 10.1 uM^3 (9.5-12.4); MONOCYTE (%) 3.2 % (3-12); MONOCYTE COUNT 0.4 K/uL (0-0.8); NEUTROPHIL COUNT 10.4 K/uL (1.8-6.4); NRBC (%) 0.2 /100 WBC (0-0); PLATELET COUNT 511 K/uL (156-360); RBC DIS.WIDTH-CV 15.1 % (11.8-14.6); RBC DIS.WIDTH-SD 51.5 % (39-53); RED BLOOD COUNT 3.24 M/uL (3.80-5.20); WHITE BLOOD COUNT 11.8 K/uL (4.1-10.2)
[2016-10-20 07:28] LABS: ANION GAP 11 MEQ/L (2-14); CHLORIDE 107 MEQ/L (99-109); GFR ESTIMATE (CALCULATED) 38 mL/min/; GLUCOSE 147 mg/dL (70-99); SAMPLE HEMOLYSIS CHECK 0; SAMPLE ICTERIC CHECK 0; SAMPLE LIPEMIA CHECK 0; SODIUM 143 MEQ/L (136-147); UREA NITROGEN (BUN) 51 mg/dL (9-23)
[2016-10-20 07:38] LABS: POINT-OF-CARE METER ID UU13113698
[2016-10-20 08:26] VITALS: BP 130/74
[2016-10-20 11:29] LABS: POINT-OF-CARE METER ID UU13113698
[2016-10-20 12:29] VITALS: BP 138/66
[2016-10-20 16:43] LABS: POINT-OF-CARE METER ID UU13113698
[2016-10-20 17:02] VITALS: BP 117/58
[2016-10-20 19:10] VITALS: BP 143/62
[2016-10-20 21:01] LABS: POINT-OF-CARE METER ID UU13113698
[2016-10-21 00:20] VITALS: BP 136/62
[2016-10-21 04:10] VITALS: BP 159/67
[2016-10-21 07:08] LABS: ANION GAP 10 MEQ/L (2-14); CHLORIDE 107 MEQ/L (99-109); GFR ESTIMATE (CALCULATED) 41 mL/min/; GLUCOSE 181 mg/dL (70-99); POTASSIUM 4.4 MEQ/L (3.7-5.4); SAMPLE HEMOLYSIS CHECK 0; SAMPLE ICTERIC CHECK 0; SAMPLE LIPEMIA CHECK 0; SODIUM 142 MEQ/L (136-147); UREA NITROGEN (BUN) 53 mg/dL (9-23)
[2016-10-21 08:03] LABS: POINT-OF-CARE METER ID UU14174216; POINT-OF-CARE USER ID ENVKC36
[2016-10-21 08:30] VITALS: BP 125/78
[2016-10-21 11:34] LABS: POINT-OF-CARE METER ID UU14174216; POINT-OF-CARE USER ID ENVKC36
[2016-10-21 11:48] VITALS: BP 136/72
[2016-10-21 16:22] LABS: POINT-OF-CARE METER ID UU14174216; POINT-OF-CARE USER ID ENVKC36
[2016-10-21 18:00] LABS: POINT-OF-CARE METER ID UU13113698
[2016-10-21 19:10] VITALS: BP 122/62
[2016-10-21 21:18] LABS: POINT-OF-CARE METER ID UU14174216
[2016-10-22] VITALS (10 sets, daily range): BP systolic 116–154; BP diastolic 51–76
[2016-10-22 07:47] LABS: POINT-OF-CARE METER ID UU14174216; POINT-OF-CARE USER ID ENVKC36
[2016-10-22 09:17] LABS: EOSINOPHIL (%) 0.1 % (0-5); HEMATOCRIT 30.5 % (36.0-46.0); IMMATURE GRANULOCYTE (%) 0.9 % (0.0-0.7); IMMATURE GRANULOCYTE COUNT 0.2 K/uL; LYMPHOCYTE COUNT 1.7 K/uL (1.0-2.8); MCH 27.6 PG (29.0-34.0); MCHC 29.5 G/DL (30.0-36.0); MCV 93.6 FL (83-99); MONOCYTE (%) 3.9 % (3-12); MONOCYTE COUNT 0.8 K/uL (0-0.8); NEUTROPHIL (%) 86.6 % (45-76); NRBC (%) 0.2 /100 WBC (0-0); PLATELET COUNT 647 K/uL (156-360); RBC DIS.WIDTH-CV 15.4 % (11.8-14.6); RBC DIS.WIDTH-SD 52.1 % (39-53); RED BLOOD COUNT 3.26 M/uL (3.80-5.20)
[2016-10-22 09:22] LABS: WHITE BLOOD COUNT 20.8 K/uL (4.1-10.2)
[2016-10-22 09:43] LABS: ANION GAP 9 MEQ/L (2-14); CHLORIDE 109 MEQ/L (99-109); GFR ESTIMATE (CALCULATED) 44 mL/min/; GLUCOSE 203 mg/dL (70-99); POTASSIUM 4.6 MEQ/L (3.7-5.4); SAMPLE HEMOLYSIS CHECK 0; SAMPLE ICTERIC CHECK 0; SAMPLE LIPEMIA CHECK 0; SODIUM 144 MEQ/L (136-147); UREA NITROGEN (BUN) 51 mg/dL (9-23)
[2016-10-22 12:31] LABS: POINT-OF-CARE METER ID UU14162636
[2016-10-22 17:15] LABS: POINT-OF-CARE METER ID UU14162636
[2016-10-22 22:46] LABS: POINT-OF-CARE METER ID UU13113731; POINT-OF-CARE USER ID PHATLC
[2016-10-23] VITALS (21 sets, daily range): BP systolic 103–164; BP diastolic 43–82
[2016-10-23 06:02] LABS: ANION GAP 8 MEQ/L (2-14); CHLORIDE 109 MEQ/L (99-109); GFR ESTIMATE (CALCULATED) 49 mL/min/; POTASSIUM 4.7 MEQ/L (3.7-5.4); SAMPLE HEMOLYSIS CHECK 0; SAMPLE ICTERIC CHECK 0; SAMPLE LIPEMIA CHECK 0; SODIUM 146 MEQ/L (136-147); UREA NITROGEN (BUN) 46 mg/dL (9-23)
[2016-10-23 06:07] LABS: GLUCOSE 114 mg/dL (70-99)
[2016-10-23 06:18] LABS: INFLUENZA A VIRAL ANTIGEN NEGATIVE; INFLUENZA B VIRAL ANTIGEN NEGATIVE
[2016-10-23 06:56] LABS: EOSINOPHIL (%) 0.1 % (0-5); HEMATOCRIT 27.6 % (36.0-46.0); IMMATURE GRANULOCYTE (%) 0.7 % (0.0-0.7); IMMATURE GRANULOCYTE COUNT 0.1 K/uL; INSTRUMENT ABS NEUTROPHIL CT 9.9 K/uL; MCH 27.2 PG (29.0-34.0); MCHC 29.7 G/DL (30.0-36.0); MCV 91.7 FL (83-99); MONOCYTE (%) 4.6 % (3-12); MONOCYTE COUNT 0.5 K/uL (0-0.8); NEUTROPHIL (%) 85.6 % (45-76); NEUTROPHIL COUNT 9.9 K/uL (1.8-6.4); RBC DIS.WIDTH-CV 15.3 % (11.8-14.6); RBC DIS.WIDTH-SD 50.6 % (39-53); RED BLOOD COUNT 3.01 M/uL (3.80-5.20)
[2016-10-23 07:00] LABS: PLAT.SUFFICIENCY INCREASED; PLATELET CLUMPS PRESENT - PLATELET COUNT APPEARS INCREASED
[2016-10-23 07:01] LABS: PLATELET COUNT UNABLE TO REPORT K/uL (156-360); WHITE BLOOD COUNT 11.6 K/uL (4.1-10.2)
[2016-10-23 08:23] LABS: POINT-OF-CARE METER ID UU13113803
[2016-10-23 12:02] LABS: POINT-OF-CARE METER ID UU13113803
[2016-10-23 17:11] LABS: POINT-OF-CARE METER ID UU13113803
[2016-10-23 22:04] LABS: POINT-OF-CARE METER ID UU14174217
[2016-10-24] VITALS (11 sets, daily range): BP systolic 118–154; BP diastolic 38–69
[2016-10-24 05:56] LABS: EOSINOPHIL (%) 0.1 % (0-5); HEMATOCRIT 27.4 % (36.0-46.0); IMMATURE GRANULOCYTE (%) 0.4 % (0.0-0.7); IMMATURE GRANULOCYTE COUNT 0.1 K/uL; INSTRUMENT ABS NEUTROPHIL CT 11.3 K/uL; LYMPHOCYTE COUNT 0.9 K/uL (1.0-2.8); MCH 27.3 PG (29.0-34.0); MCHC 30.3 G/DL (30.0-36.0); MCV 90.1 FL (83-99); MEAN PLAT.VOLUME 10.2 uM^3 (9.5-12.4); MONOCYTE COUNT 0.6 K/uL (0-0.8); NEUTROPHIL (%) 87.7 % (45-76); NEUTROPHIL COUNT 11.3 K/uL (1.8-6.4); RBC DIS.WIDTH-CV 15.4 % (11.8-14.6); RBC DIS.WIDTH-SD 50.4 % (39-53); RED BLOOD COUNT 3.04 M/uL (3.80-5.20); WHITE BLOOD COUNT 12.8 K/uL (4.1-10.2)
[2016-10-24 06:10] LABS: CHLORIDE 105 MEQ/L (99-109); PLATELET COUNT 442 K/uL (156-360); POTASSIUM 3.8 MEQ/L (3.7-5.4); SODIUM 144 MEQ/L (136-147)
[2016-10-24 06:55] LABS: ANION GAP 12 MEQ/L (2-14); GFR ESTIMATE (CALCULATED) 54 mL/min/; SAMPLE HEMOLYSIS CHECK 0; SAMPLE ICTERIC CHECK 0; SAMPLE LIPEMIA CHECK 0; UREA NITROGEN (BUN) 41 mg/dL (9-23)
[2016-10-24 07:03] LABS: GLUCOSE 215 mg/dL (70-99)
[2016-10-24 08:15] LABS: POINT-OF-CARE METER ID UU13113803
[2016-10-24 13:00] LABS: POINT-OF-CARE METER ID UU14174217
[2016-10-24 17:46] LABS: POINT-OF-CARE METER ID UU14174217
[2016-10-24 22:19] LABS: POINT-OF-CARE METER ID UU13113731
[2016-10-25] VITALS (14 sets, daily range): BP systolic 105–170; BP diastolic 47–83
[2016-10-25 07:43] LABS: POINT-OF-CARE METER ID UU13113731
[2016-10-25 12:33] LABS: POINT-OF-CARE METER ID UU13113731
[2016-10-26] VITALS (8 sets, daily range): BP systolic 113–137; BP diastolic 51–67
[2016-10-26 03:11] LABS: POINT-OF-CARE METER ID UU14162636
[2016-10-26 09:07] LABS: POINT-OF-CARE METER ID UU13113803
[2016-10-26 12:03] LABS: ANION GAP 9 MEQ/L (2-14); CHLORIDE 103 MEQ/L (99-109); GFR ESTIMATE (CALCULATED) > 59 mL/min/; GLUCOSE 276 mg/dL (70-99); POTASSIUM 3.3 MEQ/L (3.7-5.4); SAMPLE HEMOLYSIS CHECK 0; SAMPLE ICTERIC CHECK 0; SAMPLE LIPEMIA CHECK 0; SODIUM 141 MEQ/L (136-147); UREA NITROGEN (BUN) 36 mg/dL (9-23)
[2016-10-26 12:15] LABS: POINT-OF-CARE METER ID UU13113803
[2016-10-26 12:48] LABS: EOSINOPHIL (%) 0.4 % (0-5); EOSINOPHIL COUNT 0.1 K/uL (0-0.3); IMMATURE GRANULOCYTE (%) 0.7 % (0.0-0.7); IMMATURE GRANULOCYTE COUNT 0.1 K/uL; INSTRUMENT ABS NEUTROPHIL CT 12.9 K/uL; LYMPHOCYTE COUNT 1.1 K/uL (1.0-2.8); MCH 26.6 PG (29.0-34.0); MCHC 29.3 G/DL (30.0-36.0); MCV 90.6 FL (83-99); MEAN PLAT.VOLUME 10.6 uM^3 (9.5-12.4); MONOCYTE (%) 5.7 % (3-12); MONOCYTE COUNT 0.9 K/uL (0-0.8); NEUTROPHIL (%) 85.8 % (45-76); NEUTROPHIL COUNT 12.9 K/uL (1.8-6.4); PLATELET COUNT 378 K/uL (156-360); RBC DIS.WIDTH-CV 15.3 % (11.8-14.6); RBC DIS.WIDTH-SD 50.8 % (39-53)
[2016-10-27] VITALS (12 sets, daily range): BP systolic 112–165; BP diastolic 53–72
[2016-10-27 05:41] LABS: EOSINOPHIL (%) 0 % (0-5); HEMATOCRIT 26.5 % (36.0-46.0); IMMATURE GRANULOCYTE (%) 0.5 % (0.0-0.7); IMMATURE GRANULOCYTE COUNT 0.1 K/uL; INSTRUMENT ABS NEUTROPHIL CT 9.8 K/uL; LYMPHOCYTE COUNT 0.6 K/uL (1.0-2.8); MCH 27.1 PG (29.0-34.0); MCHC 30.2 G/DL (30.0-36.0); MCV 89.8 FL (83-99); MEAN PLAT.VOLUME 10.6 uM^3 (9.5-12.4); MONOCYTE (%) 4.6 % (3-12); MONOCYTE COUNT 0.5 K/uL (0-0.8); NEUTROPHIL (%) 89.3 % (45-76); NEUTROPHIL COUNT 9.8 K/uL (1.8-6.4); PLATELET COUNT 324 K/uL (156-360); RBC DIS.WIDTH-CV 15.4 % (11.8-14.6); RBC DIS.WIDTH-SD 50.3 % (39-53); RED BLOOD COUNT 2.95 M/uL (3.80-5.20)
[2016-10-27 06:15] LABS: ANION GAP 9 MEQ/L (2-14); CHLORIDE 105 MEQ/L (99-109); GFR ESTIMATE (CALCULATED) > 59 mL/min/; GLUCOSE 279 mg/dL (70-99); POTASSIUM 3.6 MEQ/L (3.7-5.4); SAMPLE HEMOLYSIS CHECK 0; SAMPLE ICTERIC CHECK 0; SAMPLE LIPEMIA CHECK 0; SODIUM 142 MEQ/L (136-147); UREA NITROGEN (BUN) 35 mg/dL (9-23)
[2016-10-27 12:51] LABS: POINT-OF-CARE METER ID UU14162636
[2016-10-27 16:53] LABS: POINT-OF-CARE METER ID UU14174217
[2016-10-27 22:54] LABS: POINT-OF-CARE METER ID UU14162636
[2016-10-28] VITALS (12 sets, daily range): BP systolic 112–163; BP diastolic 52–69
[2016-10-28 05:51] LABS: MCH 26.7 PG (29.0-34.0); MCV 89.1 FL (83-99); MEAN PLAT.VOLUME 10.4 uM^3 (9.5-12.4); PLATELET COUNT 358 K/uL (156-360); RBC DIS.WIDTH-CV 15.8 % (11.8-14.6); RBC DIS.WIDTH-SD 50.6 % (39-53); RED BLOOD COUNT 3.48 M/uL (3.80-5.20); WHITE BLOOD COUNT 11.6 K/uL (4.1-10.2)
[2016-10-28 06:37] LABS: ANION GAP 9 MEQ/L (2-14); CHLORIDE 103 MEQ/L (99-109); GFR ESTIMATE (CALCULATED) > 59 mL/min/; GLUCOSE 195 mg/dL (70-99); POTASSIUM 4.2 MEQ/L (3.7-5.4); SAMPLE HEMOLYSIS CHECK 0; SAMPLE ICTERIC CHECK 0; SAMPLE LIPEMIA CHECK 0; SODIUM 142 MEQ/L (136-147); UREA NITROGEN (BUN) 36 mg/dL (9-23)
[2016-10-28 12:42] LABS: POINT-OF-CARE METER ID UU13113803
[2016-10-28 17:57] LABS: POINT-OF-CARE METER ID UU14162636
[2016-10-28 21:30] LABS: POINT-OF-CARE METER ID UU14162636
[2016-10-28 23:18] LABS: C DIFF TOXIN NEGATIVE (NEGATIVE)
[2016-10-28 23:19] LABS: PROBE CHECK PASS; SPECIMEN PROCESSING CONTROL PASS
[2016-10-29] VITALS (12 sets, daily range): BP systolic 112–165; BP diastolic 51–89
[2016-10-29 06:00] LABS: HEMATOCRIT 31.8 % (36.0-46.0); MCH 26.8 PG (29.0-34.0); MCHC 29.9 G/DL (30.0-36.0); MCV 89.6 FL (83-99); MEAN PLAT.VOLUME 10.5 uM^3 (9.5-12.4); PLATELET COUNT 369 K/uL (156-360); RBC DIS.WIDTH-CV 15.9 % (11.8-14.6); RBC DIS.WIDTH-SD 51.9 % (39-53); RED BLOOD COUNT 3.55 M/uL (3.80-5.20); WHITE BLOOD COUNT 12.5 K/uL (4.1-10.2)
[2016-10-29 06:34] LABS: ANION GAP 10 MEQ/L (2-14); CHLORIDE 108 MEQ/L (99-109); GFR ESTIMATE (CALCULATED) 54 mL/min/; GLUCOSE 165 mg/dL (70-99); POTASSIUM 3.8 MEQ/L (3.7-5.4); SAMPLE HEMOLYSIS CHECK 0; SAMPLE ICTERIC CHECK 0; SAMPLE LIPEMIA CHECK 0; SODIUM 146 MEQ/L (136-147); UREA NITROGEN (BUN) 40 mg/dL (9-23)
[2016-10-29 12:42] LABS: POINT-OF-CARE METER ID UU14162636
[2016-10-30 04:00] VITALS: BP 171/83
[2016-10-30 08:15] LABS: POINT-OF-CARE USER ID NUTSLF44
[2016-10-30 08:36] LABS: EOSINOPHIL (%) 0.1 % (0-5); HEMATOCRIT 29.9 % (36.0-46.0); IMMATURE GRANULOCYTE (%) 0.6 % (0.0-0.7); IMMATURE GRANULOCYTE COUNT 0.1 K/uL; INSTRUMENT ABS NEUTROPHIL CT 12.2 K/uL; LYMPHOCYTE COUNT 1.3 K/uL (1.0-2.8); MCH 26.6 PG (29.0-34.0); MCHC 29.1 G/DL (30.0-36.0); MCV 91.4 FL (83-99); MEAN PLAT.VOLUME 10.3 uM^3 (9.5-12.4); MONOCYTE (%) 7.5 % (3-12); MONOCYTE COUNT 1.1 K/uL (0-0.8); NEUTROPHIL COUNT 12.2 K/uL (1.8-6.4); PLATELET COUNT 291 K/uL (156-360); RBC DIS.WIDTH-CV 16.1 % (11.8-14.6); RBC DIS.WIDTH-SD 52.8 % (39-53); RED BLOOD COUNT 3.27 M/uL (3.80-5.20); WHITE BLOOD COUNT 14.7 K/uL (4.1-10.2)
[2016-10-30 09:00] VITALS: BP 134/78
[2016-10-30 09:07] LABS: ANION GAP 8 MEQ/L (2-14); CHLORIDE 106 MEQ/L (99-109); GFR ESTIMATE (CALCULATED) > 59 mL/min/; GLUCOSE 200 mg/dL (70-99); POTASSIUM 3.5 MEQ/L (3.7-5.4); SAMPLE HEMOLYSIS CHECK 0; SAMPLE ICTERIC CHECK 0; SAMPLE LIPEMIA CHECK 0; SODIUM 142 MEQ/L (136-147); UREA NITROGEN (BUN) 39 mg/dL (9-23)
[2016-10-30 11:57] LABS: POINT-OF-CARE USER ID NUTSLF44
[2016-10-30 12:00] VITALS: BP 175/79
[2016-10-30 16:00] VITALS: BP 131/64
[2016-10-30 19:46] VITALS: BP 142/65
[2016-10-30 20:45] LABS: POINT-OF-CARE METER ID UU14174216
[2016-10-31] VITALS: BP 140/64
[2016-10-31 03:00] VITALS: BP 140/67
[2016-10-31 05:58] LABS: EOSINOPHIL (%) 0.1 % (0-5); HEMATOCRIT 29.6 % (36.0-46.0); IMMATURE GRANULOCYTE (%) 0.6 % (0.0-0.7); IMMATURE GRANULOCYTE COUNT 0.1 K/uL; INSTRUMENT ABS NEUTROPHIL CT 11.6 K/uL; LYMPHOCYTE COUNT 1.1 K/uL (1.0-2.8); MCH 27.1 PG (29.0-34.0); MCHC 30.1 G/DL (30.0-36.0); MEAN PLAT.VOLUME 10.3 uM^3 (9.5-12.4); MONOCYTE (%) 5.7 % (3-12); MONOCYTE COUNT 0.8 K/uL (0-0.8); NEUTROPHIL (%) 85.4 % (45-76); NEUTROPHIL COUNT 11.6 K/uL (1.8-6.4); PLATELET COUNT 305 K/uL (156-360); RBC DIS.WIDTH-CV 16.4 % (11.8-14.6); RBC DIS.WIDTH-SD 52.7 % (39-53); RED BLOOD COUNT 3.29 M/uL (3.80-5.20); WHITE BLOOD COUNT 13.5 K/uL (4.1-10.2)
[2016-10-31 06:33] LABS: ANION GAP 8 MEQ/L (2-14); CHLORIDE 107 MEQ/L (99-109); GFR ESTIMATE (CALCULATED) 54 mL/min/; GLUCOSE 142 mg/dL (70-99); POTASSIUM 3.4 MEQ/L (3.7-5.4); SAMPLE HEMOLYSIS CHECK 0; SAMPLE ICTERIC CHECK 0; SAMPLE LIPEMIA CHECK 0; SODIUM 146 MEQ/L (136-147); UREA NITROGEN (BUN) 36 mg/dL (9-23)
[2016-10-31 08:00] LABS: POINT-OF-CARE METER ID UU14174216; POINT-OF-CARE USER ID ENVKC36
[2016-10-31 09:00] VITALS: BP 142/64
[2016-10-31 11:50] LABS: POINT-OF-CARE METER ID UU14174216; POINT-OF-CARE USER ID ENVKC36
[2016-10-31 12:00] VITALS: BP 125/58
[2016-10-31] MEDS ORDERED: LEVEMIR100 UNIT/2 SC (13:29)
[2016-10-31] MEDS ORDERED: FUROSEMIDE20 MG PO (13:30)
[2016-10-31] MEDS ORDERED: PREDNISONE10 MG PO (13:30)
[2016-10-31] MEDS ORDERED: NOVOLOG PE100 UNITS/ SC (13:30)
[2016-10-31] MEDS ORDERED: MYCOPHENOLATE250 MG PO (13:54)
== END 2016-10-31 14:54 | disposition designated cancer center or children's hospital (05) | DRG 189 ==
LOC: 4EAST 05:18 → 4WEST 05:56 → 4EAST 10-29 16:40
PROVIDERS: Anesthesiology; Hospitalist; Internal Medicine; Internal Medicine Cardiovascular Disease; Internal Medicine Critical Care Medicine; Internal Medicine Nephrology; Student in an Organized Health Care Education/Training Program
PROC: 5A09358 Assistance with Respiratory Ventilation, Less than 24 Consecutive Hours, Intermittent Positive Airway Pressure (ICD-10-PCS; principal; 2016-10-22)
DX: J96.01 Acute respiratory failure with hypoxia (principal); J84.114 Acute interstitial pneumonitis; T82.897A Other specified complication of cardiac prosthetic devices, implants and grafts, initial encounter; J98.6 Disorders of diaphragm; Y83.2 Surgical operation with anastomosis, bypass or graft as the cause of abnormal reaction of the patient, or of later complication, without mention of misadventure at the time of the procedure; I13.0 Hypertensive heart and chronic kidney disease with heart failure and stage 1 through stage 4 chronic kidney disease, or unspecified chronic kidney disease; I50.43 Acute on chronic combined systolic (congestive) and diastolic (congestive) heart failure; J18.9 Pneumonia, unspecified organism; N17.9 Acute kidney failure, unspecified; N18.3 Chronic kidney disease, stage 3 (moderate); E11.22 Type 2 diabetes mellitus with diabetic chronic kidney disease; I73.9 Peripheral vascular disease, unspecified; I25.10 Atherosclerotic heart disease of native coronary artery without angina pectoris; I25.5 Ischemic cardiomyopathy; I08.1 Rheumatic disorders of both mitral and tricuspid valves; I27.2 Other secondary pulmonary hypertension; J44.9 Chronic obstructive pulmonary disease, unspecified; E78.5 Hyperlipidemia, unspecified; G89.18 Other acute postprocedural pain; I25.2 Old myocardial infarction; Z79.1 Long term (current) use of non-steroidal anti-inflammatories (NSAID); Z66 Do not resuscitate; Z87.891 Personal history of nicotine dependence
CPT/HCPCS: 71010; 76770; 76937; 78580; 80048; 80053; 80202; 81003; 82570; 82948; 83735; 83880; 84100; 84156; 84484; 84550; 85025; 85027; 87493; 87502; 87641; 93005; 93306; 94002; 94003; 94010; 94640; 94640 76; 94660; 94760; 94799; 97530 GO; 97530 GP; 99202; A9540; C1894; J0692; J1644; J1815; J1940; J1956; J2020; J2405; J2543; J3370; J7050; J7512; J7517

== ENCOUNTER 2016-12-03 10:39 | Inpatient (IN) | payer OTHER ==
[~2016-12-03] VITALS: Ht 152.4 cm; Wt 66.0 kg
[~2016-12-03 10:39] MED LIST changes: +BASAGLAR K100 UNIT/1 SC; +FUROSEMIDE20 MG PO; +LEVEMIR100 UNIT/2 SC; +LO-DOSE ASPIRIN81 M2 PO; +MYCOPHENOLATE250 MG PO; +PLAVIX75 MG PO
[2016-12-03 11:21] LABS: EOSINOPHIL COUNT 0.2 K/uL (0-0.3); HEMATOCRIT 34.6 % (36.0-46.0); IMMATURE GRANULOCYTE (%) 0.6 % (0.0-0.7); IMMATURE GRANULOCYTE COUNT 0.1 K/uL; INSTRUMENT ABS NEUTROPHIL CT 5.4 K/uL; LYMPHOCYTE COUNT 1.6 K/uL (1.0-2.8); MCH 26.7 PG (29.0-34.0); MCHC 29.5 G/DL (30.0-36.0); MCV 90.6 FL (83-99); MEAN PLAT.VOLUME 9.9 uM^3 (9.5-12.4); MONOCYTE (%) 7.8 % (3-12); MONOCYTE COUNT 0.6 K/uL (0-0.8); NEUTROPHIL (%) 68.6 % (45-76); NEUTROPHIL COUNT 5.4 K/uL (1.8-6.4); PLATELET COUNT 208 K/uL (156-360); RBC DIS.WIDTH-CV 16.6 % (11.8-14.6); RBC DIS.WIDTH-SD 55.3 % (39-53); RED BLOOD COUNT 3.82 M/uL (3.80-5.20); WHITE BLOOD COUNT 7.8 K/uL (4.1-10.2)
[2016-12-03 11:34] LABS: INTER. NORMALIZED RATIO 1.1; PROTHROMBIN TIME 10.9 (9.2-11.2); PTT 29.3 (25-32)
[2016-12-03 11:35] LABS: CHLORIDE 103 mEq/L (99-109); POTASSIUM 4.1 mEq/L (3.7-5.4); SODIUM 143 mEq/L (136-147)
[2016-12-03 11:37] LABS: GLUCOSE 190 mg/dL (70-99)
[2016-12-03 11:38] LABS: ANION GAP 10 MEQ/L (2-14)
[2016-12-03 11:41] LABS: GFR ESTIMATE (CALCULATED) > 59 mL/min/; UREA NITROGEN (BUN) 22 mg/dL (9-23)
[2016-12-03 11:58] LABS: TROP-I INTERPRETATION NEGATIVE; TROPONIN-I 0.04 ng/mL (0.0-0.30)
[2016-12-03] MEDS ORDERED: MAG-OXIDE400 MG PO (15:06)
[2016-12-03] MEDS ORDERED: ZOLOFT25 MG PO (15:07)
[2016-12-03] MEDS ORDERED: SENNA8.6 MG PO (15:08)
[2016-12-03] MEDS ORDERED: LEVOFLOXACIN500 MG PO (15:09)
[2016-12-03] MEDS ORDERED: LEVEMIR100 UNIT/2 SC (15:10)
[2016-12-03] MEDS ORDERED: METOPROLOL TART25 MG PO (15:11)
[2016-12-03] MEDS ORDERED: FUROSEMIDE20 MG PO (15:12)
[2016-12-03] MEDS ORDERED: MIRTAZAPINE15 MG PO (15:12)
[2016-12-03] MEDS ORDERED: TAMSULOSIN HCL0.4 MG PO (15:13)
[2016-12-03] MEDS ORDERED: ZINC SULFATE220 M1 PO (15:13)
[2016-12-03] MEDS ORDERED: ASCORBIC ACID500 M3 PO (15:15)
[2016-12-03] MEDS ORDERED: GABAPENTIN100 MG PO (15:15)
[2016-12-03] MEDS ORDERED: PREDNISONE10 MG PO (15:17)
[2016-12-03] MEDS ORDERED: OXYCODONE HCL5 MG PO (15:18)
[2016-12-03] MEDS ORDERED: TRAMADOL HCL50 MG PO (15:18)
[2016-12-03] MEDS ORDERED: ONDANSETRON HCL4 MG PO (15:19)
[2016-12-03] MEDS ORDERED: NOVOLOG 10100 UNITS/ SC (15:20)
[2016-12-03] MEDS ORDERED: MELATIN3 MG PO (15:20)
[2016-12-03] MEDS ORDERED: NICOTINE PATCH1 EACH TD (15:22)
[2016-12-03] MEDS ORDERED: DUONEB 2.5-0.5 M3 ML AEROSOL ×2 (15:26→15:28)
[2016-12-03] MEDS ORDERED: SANTYL30 GM TP (15:27)
[2016-12-03] MEDS ORDERED: AQUAPHOR OINTM105 GM TP (15:27)
[2016-12-03] MEDS ORDERED: ADVAIR HFA120 INHALA IH (15:28)
[2016-12-03] MEDS ORDERED: SPIRIVA1 INHALATI IH (15:28)
[2016-12-03 15:44] VITALS: BP 133/61
[2016-12-03 16:47] LABS: POINT-OF-CARE METER ID UU14174225
[2016-12-03 18:48] LABS: TROP-I INTERPRETATION NEGATIVE; TROPONIN-I 0.04 ng/mL (0.0-0.30)
[2016-12-03 19:50] VITALS: BP 146/68
[2016-12-03 23:45] VITALS: BP 160/76
[2016-12-04 01:36] LABS: TROP-I INTERPRETATION NEGATIVE; TROPONIN-I 0.03 ng/mL (0.0-0.30)
[2016-12-04 05:04] VITALS: BP 150/71
[2016-12-04 06:53] LABS: EOSINOPHIL (%) 0 % (0-5); IMMATURE GRANULOCYTE (%) 0.6 % (0.0-0.7); INSTRUMENT ABS NEUTROPHIL CT 4.6 K/uL; LYMPHOCYTE COUNT 0.7 K/uL (1.0-2.8); MCH 27.2 PG (29.0-34.0); MCHC 30.3 G/DL (30.0-36.0); MCV 89.6 FL (83-99); MEAN PLAT.VOLUME 10.8 uM^3 (9.5-12.4); MONOCYTE (%) 1.7 % (3-12); MONOCYTE COUNT 0.1 K/uL (0-0.8); NEUTROPHIL (%) 84.8 % (45-76); NEUTROPHIL COUNT 4.6 K/uL (1.8-6.4); PLATELET COUNT 200 K/uL (156-360); RBC DIS.WIDTH-CV 16.3 % (11.8-14.6); RBC DIS.WIDTH-SD 53.7 % (39-53); RED BLOOD COUNT 3.57 M/uL (3.80-5.20); WHITE BLOOD COUNT 5.4 K/uL (4.1-10.2)
[2016-12-04 07:18] LABS: TROP-I INTERPRETATION NEGATIVE; TROPONIN-I 0.03 ng/mL (0.0-0.30)
[2016-12-04 07:33] LABS: ALKALINE PHOSPHATASE 319 IU/L (3-129); ANION GAP 11 MEQ/L (2-14); CHLORIDE 99 MEQ/L (99-109); GFR ESTIMATE (CALCULATED) > 59 mL/min/; SAMPLE HEMOLYSIS CHECK 1; SAMPLE ICTERIC CHECK 0; SAMPLE LIPEMIA CHECK 0; SODIUM 138 MEQ/L (136-147); TOTAL BILIRUBIN 0.5 MG/DL (0.0-1.0); UREA NITROGEN (BUN) 29 mg/dL (9-23)
[2016-12-04 07:37] LABS: GLUCOSE 398 mg/dL (70-99); POTASSIUM 4.6 MEQ/L (3.7-5.4)
[2016-12-04 08:08] VITALS: BP 140/85
[2016-12-04 10:34] LABS: ADD MIUA? YES; BILIRUBIN NEGATIVE; BLOOD NEGATIVE; COLOR YELLOW ((YELLOW)); GLUCOSE (STRIP) 150; KETONES NEGATIVE; LEUKOCYTES TRACE; NITRITE NEGATIVE; PROTEIN (STRIP) 100; SPECIFIC GRAVITY 1.027 (1.000-1.030); UROBILINOGEN 0.2 MG/DL (0.2-1.0)
[2016-12-04 10:54] LABS: BACTERIA RARE /HPF; EPITHELIAL CELLS RARE /HPF; HYALINE CASTS 0-5 /LPF; MUCUS TRACE /LPF; UCUL ADDED? NO
[2016-12-04 12:11] VITALS: BP 153/87
[2016-12-04 16:24] VITALS: BP 142/71
[2016-12-04 19:34] VITALS: BP 150/79
[2016-12-04 21:46] LABS: POINT-OF-CARE METER ID UU14174225
[2016-12-04 23:05] VITALS: BP 134/65
[2016-12-05 03:26] VITALS: BP 130/67
[2016-12-05 08:22] VITALS: BP 154/80
[2016-12-05 08:47] LABS: INTERNAL CONTROL VALID? YES
[2016-12-05 09:04] LABS: HEMATOCRIT 36.3 % (36.0-46.0); MCH 26.9 PG (29.0-34.0); MCHC 29.8 G/DL (30.0-36.0); MCV 90.5 FL (83-99); MEAN PLAT.VOLUME 10.6 uM^3 (9.5-12.4); PLATELET COUNT 233 K/uL (156-360); RBC DIS.WIDTH-CV 16.3 % (11.8-14.6); RBC DIS.WIDTH-SD 54.7 % (39-53); RED BLOOD COUNT 4.01 M/uL (3.80-5.20)
[2016-12-05 09:06] LABS: WHITE BLOOD COUNT 11.7 K/uL (4.1-10.2)
[2016-12-05 11:22] LABS: ANION GAP 12 MEQ/L (2-14); CHLORIDE 103 MEQ/L (99-109); GFR ESTIMATE (CALCULATED) > 59 mL/min/; GLUCOSE 256 mg/dL (70-99); POTASSIUM 3.4 MEQ/L (3.7-5.4); SAMPLE HEMOLYSIS CHECK 0; SAMPLE ICTERIC CHECK 0; SAMPLE LIPEMIA CHECK 0; SODIUM 143 MEQ/L (136-147); UREA NITROGEN (BUN) 29 mg/dL (9-23)
[2016-12-05 11:54] VITALS: BP 120/68
[2016-12-05 16:47] VITALS: BP 115/75
[2016-12-05 20:00] VITALS: BP 108/63
[2016-12-05 23:30] VITALS: BP 131/66
[2016-12-06 03:50] VITALS: BP 132/62
[2016-12-06 08:01] VITALS: BP 165/75
[2016-12-06 08:45] LABS: HEMATOCRIT 32.9 % (36.0-46.0); MCH 27.1 PG (29.0-34.0); MCHC 29.8 G/DL (30.0-36.0); MCV 91.1 FL (83-99); MEAN PLAT.VOLUME 10.3 uM^3 (9.5-12.4); PLATELET COUNT 203 K/uL (156-360); RBC DIS.WIDTH-CV 16.4 % (11.8-14.6); RBC DIS.WIDTH-SD 55.6 % (39-53); RED BLOOD COUNT 3.61 M/uL (3.80-5.20); WHITE BLOOD COUNT 8.9 K/uL (4.1-10.2)
[2016-12-06 09:07] LABS: ANION GAP 8 MEQ/L (2-14); CHLORIDE 104 MEQ/L (99-109); GFR ESTIMATE (CALCULATED) > 59 mL/min/; GLUCOSE 199 mg/dL (70-99); POTASSIUM 3.8 MEQ/L (3.7-5.4); SAMPLE HEMOLYSIS CHECK 0; SAMPLE ICTERIC CHECK 0; SAMPLE LIPEMIA CHECK 0; SODIUM 143 MEQ/L (136-147); UREA NITROGEN (BUN) 29 mg/dL (9-23)
[2016-12-06 11:32] VITALS: BP 138/65
[2016-12-06 15:28] VITALS: BP 124/72
[2016-12-06 23:58] VITALS: BP 157/71
[2016-12-07 07:28] LABS: POINT-OF-CARE METER ID UU14174225
[2016-12-07 08:08] VITALS: BP 158/82
[2016-12-07 15:51] VITALS: BP 109/67
[2016-12-07 21:27] VITALS: BP 168/70
[2016-12-07 22:25] LABS: POINT-OF-CARE METER ID UU14188625
[2016-12-08 07:13] LABS: HEMATOCRIT 33.7 % (36.0-46.0); MCH 26.6 PG (29.0-34.0); MCV 88.9 FL (83-99); PLATELET COUNT 201 K/uL (156-360); RBC DIS.WIDTH-CV 16.1 % (11.8-14.6); RBC DIS.WIDTH-SD 52.9 % (39-53); RED BLOOD COUNT 3.79 M/uL (3.80-5.20); WHITE BLOOD COUNT 8.7 K/uL (4.1-10.2)
[2016-12-08 07:35] LABS: ANION GAP 9 MEQ/L (2-14); CHLORIDE 103 MEQ/L (99-109); GFR ESTIMATE (CALCULATED) > 59 mL/min/; GLUCOSE 182 mg/dL (70-99); POTASSIUM 3.7 MEQ/L (3.7-5.4); SAMPLE HEMOLYSIS CHECK 0; SAMPLE ICTERIC CHECK 0; SAMPLE LIPEMIA CHECK 0; SODIUM 143 MEQ/L (136-147); UREA NITROGEN (BUN) 25 mg/dL (9-23)
[2016-12-08 07:50] LABS: POINT-OF-CARE METER ID UU14174225
[2016-12-08 07:55] VITALS: BP 158/85
[2016-12-08] MEDS ORDERED: ATORVASTATIN CA80 MG PO (08:03)
[2016-12-08] MEDS ORDERED: MEDROL DOSEPAK4 MG PO (08:04)
[2016-12-08 11:57] LABS: POINT-OF-CARE METER ID UU14174225
[2016-12-08 14:27] VITALS: BP 135/65
[2016-12-08 16:09] LABS: POINT-OF-CARE METER ID UU14188625
[2016-12-09 14:58] LABS: POINT-OF-CARE METER ID UU14174225
== END 2016-12-08 19:23 | disposition designated cancer center or children's hospital (05) | DRG 189 ==
LOC: EME 10:39 → 5SOUTH 14:01 → EDOF 14:01 → 5SOUTH 15:28
PROVIDERS: Emergency Medicine; Hospitalist; Internal Medicine
DX: J96.01 Acute respiratory failure with hypoxia (principal); J44.0 Chronic obstructive pulmonary disease with (acute) lower respiratory infection; I50.21 Acute systolic (congestive) heart failure; J18.9 Pneumonia, unspecified organism; I25.10 Atherosclerotic heart disease of native coronary artery without angina pectoris; Z95.1 Presence of aortocoronary bypass graft; E11.9 Type 2 diabetes mellitus without complications; E78.5 Hyperlipidemia, unspecified; I10 Essential (primary) hypertension; I73.9 Peripheral vascular disease, unspecified; I25.5 Ischemic cardiomyopathy; J84.10 Pulmonary fibrosis, unspecified; I08.1 Rheumatic disorders of both mitral and tricuspid valves; I27.2 Other secondary pulmonary hypertension; Z87.891 Personal history of nicotine dependence; L89.312 Pressure ulcer of right buttock, stage 2; L89.152 Pressure ulcer of sacral region, stage 2; I13.0 Hypertensive heart and chronic kidney disease with heart failure and stage 1 through stage 4 chronic kidney disease, or unspecified chronic kidney disease; N18.9 Chronic kidney disease, unspecified; E83.51 Hypocalcemia; E88.09 Other disorders of plasma-protein metabolism, not elsewhere classified; E11.65 Type 2 diabetes mellitus with hyperglycemia
CPT/HCPCS: 71010; 71275; 76705; 80048; 80053; 80202; 81003; 82948; 83880; 84484; 85025; 85027; 85379; 85610; 85730; 87040; 87070; 87205; 87449; 93005; 93971; 94010; 94640; 94640 76; 94799; 97530 GO; 99202; 99281; 99285; J1650; J1815; J1940; J2405; J2543; J3370; J7030; J7050; J7512; J7517

== ENCOUNTER 2016-12-16 10:51 | Inpatient (IN) | payer OTHER ==
[~2016-12-16] VITALS: Ht 152.4 cm; Wt 55.2 kg
[~2016-12-16 10:51] MED LIST changes: +ADVAIR HFA120 INHALA IH; +AQUAPHOR OINTM105 GM TP; +ASCORBIC ACID500 M3 PO; +ATORVASTATIN CA80 MG PO; +DUONEB 2.5-0.5 M3 ML AEROSOL; +GABAPENTIN100 MG PO; +LEVOFLOXACIN500 MG PO; +MAG-OXIDE400 MG PO; +MEDROL DOSEPAK4 MG PO; +MELATIN3 MG PO; +METOPROLOL TART25 MG PO; +MIRTAZAPINE15 MG PO; +NICOTINE PATCH1 EACH TD; +NOVOLOG 10100 UNITS/ SC; +ONDANSETRON HCL4 MG PO; +OXYCODONE HCL5 MG PO; +SANTYL30 GM TP; +SENNA8.6 MG PO; +SPIRIVA1 INHALATI IH; +TAMSULOSIN HCL0.4 MG PO; +TRAMADOL HCL50 MG PO; +ZINC SULFATE220 M1 PO; +ZOLOFT25 MG PO
[2016-12-16 12:16] LABS: HEMATOCRIT 31.5 % (36.0-46.0); MCH 25.9 PG (29.0-34.0); MCHC 29.8 G/DL (30.0-36.0); MCV 86.8 FL (83-99); MEAN PLAT.VOLUME 10.4 uM^3 (9.5-12.4); PLATELET COUNT 237 K/uL (156-360); RBC DIS.WIDTH-CV 16.9 % (11.8-14.6); RBC DIS.WIDTH-SD 52.6 % (39-53); RED BLOOD COUNT 3.63 M/uL (3.80-5.20); WHITE BLOOD COUNT 10.5 K/uL (4.1-10.2)
[2016-12-16 12:28] LABS: CHLORIDE 103 mEq/L (99-109); POTASSIUM 4.2 mEq/L (3.7-5.4); SODIUM 141 mEq/L (136-147)
[2016-12-16 12:30] LABS: GLUCOSE 113 mg/dL (70-99)
[2016-12-16 12:31] LABS: ANION GAP 11 MEQ/L (2-14)
[2016-12-16 12:33] LABS: GFR ESTIMATE (CALCULATED) > 59 mL/min/
[2016-12-16 12:34] LABS: UREA NITROGEN (BUN) 18 mg/dL (9-23)
[2016-12-16 12:39] LABS: TROP-I INTERPRETATION NEGATIVE; TROPONIN-I 0.06 ng/mL (0.0-0.30)
[2016-12-16] MEDS ORDERED: CALMOSEPTINE O120 GM TP (15:14)
[2016-12-16] MEDS ORDERED: VALTREX1000 MG PO (15:19)
[2016-12-16] MEDS ORDERED: LIPITOR20 MG PO (15:20)
[2016-12-16] MEDS ORDERED: [UNRECOGNIZED DRUG - OTHER] PO (15:22)
[2016-12-16] MEDS ORDERED: DULCOLAX10 MG PR (15:43)
[2016-12-16 17:50] LABS: POINT-OF-CARE METER ID UU14188625
[2016-12-16 18:44] VITALS: BP 124/58
[2016-12-16 23:21] VITALS: BP 133/74
[2016-12-17 04:24] VITALS: BP 134/76
[2016-12-17 08:02] LABS: TROP-I INTERPRETATION NEGATIVE; TROPONIN-I 0.03 ng/mL (0.0-0.30)
[2016-12-17 08:23] LABS: INTERNAL CONTROL VALID? YES
[2016-12-17 08:31] VITALS: BP 118/80
[2016-12-17 10:18] LABS: ANION GAP 13 MEQ/L (2-14); CHLORIDE 101 MEQ/L (99-109); GFR ESTIMATE (CALCULATED) > 59 mL/min/; POTASSIUM 4.2 MEQ/L (3.7-5.4); SAMPLE HEMOLYSIS CHECK 0; SAMPLE ICTERIC CHECK 0; SAMPLE LIPEMIA CHECK 0; SODIUM 139 MEQ/L (136-147); UREA NITROGEN (BUN) 20 mg/dL (9-23)
[2016-12-17 10:21] LABS: GLUCOSE 272 mg/dL (70-99)
[2016-12-17 12:09] VITALS: BP 118/68
[2016-12-17 16:43] VITALS: BP 120/82
[2016-12-17 20:00] VITALS: BP 150/70
[2016-12-18] VITALS (8 sets, daily range): BP systolic 90–144; BP diastolic 60–94
[2016-12-18 02:21] LABS: INFLUENZA A VIRAL ANTIGEN NEGATIVE; INFLUENZA B VIRAL ANTIGEN NEGATIVE
[2016-12-18 08:39] LABS: EOSINOPHIL (%) 0.1 % (0-5); HEMATOCRIT 29.2 % (36.0-46.0); IMMATURE GRANULOCYTE (%) 0.6 % (0.0-0.7); IMMATURE GRANULOCYTE COUNT 0.1 K/uL; INSTRUMENT ABS NEUTROPHIL CT 7.5 K/uL; MCH 26.3 PG (29.0-34.0); MCHC 29.8 G/DL (30.0-36.0); MCV 88.2 FL (83-99); MEAN PLAT.VOLUME 10.6 uM^3 (9.5-12.4); MONOCYTE (%) 4.2 % (3-12); MONOCYTE COUNT 0.4 K/uL (0-0.8); NEUTROPHIL (%) 83.8 % (45-76); NEUTROPHIL COUNT 7.5 K/uL (1.8-6.4); PLATELET COUNT 244 K/uL (156-360); RBC DIS.WIDTH-CV 16.8 % (11.8-14.6); RBC DIS.WIDTH-SD 52.8 % (39-53); RED BLOOD COUNT 3.31 M/uL (3.80-5.20)
[2016-12-18 09:04] LABS: ANION GAP 9 MEQ/L (2-14); CHLORIDE 102 MEQ/L (99-109); GFR ESTIMATE (CALCULATED) > 59 mL/min/; GLUCOSE 186 mg/dL (70-99); POTASSIUM 4.7 MEQ/L (3.7-5.4); SAMPLE HEMOLYSIS CHECK 0; SAMPLE ICTERIC CHECK 0; SAMPLE LIPEMIA CHECK 0; SODIUM 140 MEQ/L (136-147); UREA NITROGEN (BUN) 24 mg/dL (9-23)
[2016-12-18 09:18] LABS: BASE EXCESS 3.7 mEq/L (-3 to +3); BICARBONATE 31.3 mEq/L (22-26); CARBOXY HGB 2.4 % (0-5); METHEMOGLOBIN 1.5 % (0-1.5); PO2 55 mm Hg (80-100)
[2016-12-18 09:19] LABS: pH 7.29 (7.35-7.45)
[2016-12-18 09:20] LABS: COMMENTS - BLOOD GASES NEG A+C+; DEVICE HFFNC; FI02 80 %; O2 FLOW 35 L/MIN; PCO2 65 mm Hg (35-45); SITE LR; TOTAL RESP RATE 18 resp/min
[2016-12-19] VITALS (23 sets, daily range): BP systolic 99–151; BP diastolic 56–83
[2016-12-19 00:30] LABS: BASE EXCESS -1.1 mEq/L (-3 to +3); BICARBONATE 28.3 mEq/L (22-26); CARBOXY HGB 2.4 % (0-5); METHEMOGLOBIN 1.9 % (0-1.5); PO2 48 mm Hg (80-100)
[2016-12-19 00:31] LABS: COMMENTS - BLOOD GASES A+C+; DEVICE NRBM; FI02 100 %; PCO2 74 mm Hg (35-45); SITE RR; pH 7.19 (7.35-7.45)
[2016-12-19 00:32] LABS: TOTAL RESP RATE 26 resp/min
[2016-12-19 01:28] LABS: INTER. NORMALIZED RATIO 1.1; PROTHROMBIN TIME 10.8 (9.2-11.2); PTT 33.6 (25-32)
[2016-12-19 01:28] LABS: HEMATOCRIT 32.4 % (36.0-46.0); MCH 26.4 PG (29.0-34.0); MCHC 29.6 G/DL (30.0-36.0); MCV 89.3 FL (83-99); MEAN PLAT.VOLUME 10.5 uM^3 (9.5-12.4); PLATELET COUNT 313 K/uL (156-360); RBC DIS.WIDTH-CV 17.2 % (11.8-14.6); RBC DIS.WIDTH-SD 54.2 % (39-53); RED BLOOD COUNT 3.63 M/uL (3.80-5.20)
[2016-12-19 01:34] LABS: CHLORIDE 107 mEq/L (99-109); POTASSIUM 4.4 mEq/L (3.7-5.4); SODIUM 142 mEq/L (136-147)
[2016-12-19 01:35] LABS: MAGNESIUM 2.1 mg/dL (1.3-2.7)
[2016-12-19 01:37] LABS: GLUCOSE 120 mg/dL (70-99)
[2016-12-19 01:38] LABS: ANION GAP 10 MEQ/L (2-14); TOTAL BILIRUBIN 0.5 mg/dL (0.0-1.0)
[2016-12-19 01:40] LABS: ALKALINE PHOSPHATASE 149 IU/L (3-129); GFR ESTIMATE (CALCULATED) > 59 mL/min/
[2016-12-19 01:41] LABS: TROP-I INTERPRETATION NEGATIVE; TROPONIN-I 0.02 ng/mL (0.0-0.30); UREA NITROGEN (BUN) 25 mg/dL (9-23)
[2016-12-19 02:56] LABS: METH RESISTANT S AUREUS PCR POSITIVE (NEGATIVE)
[2016-12-19 03:20] LABS: PROBE CHECK PASS
[2016-12-19 03:48] LABS: BASE EXCESS 1.4 mEq/L (-3 to +3); BICARBONATE 28.2 mEq/L (22-26); METHEMOGLOBIN 1.5 % (0-1.5); PCO2 56 mm Hg (35-45); PO2 112 mm Hg (80-100); pH 7.31 (7.35-7.45)
[2016-12-19 03:49] LABS: COMMENTS - BLOOD GASES C+; CONTINUOUS POS AIRWAY PRESSURE 5 cm H2O; DEVICE MASK VENT; FI02 100 %; PRES. SUPPORT 14 CM/H2O; SITE LR; TOTAL RESP RATE 16 resp/min
[2016-12-19 07:54] LABS: EOSINOPHIL (%) 0 % (0-5); HEMATOCRIT 29.3 % (36.0-46.0); IMMATURE GRANULOCYTE (%) 0.7 % (0.0-0.7); IMMATURE GRANULOCYTE COUNT 0.1 K/uL; INSTRUMENT ABS NEUTROPHIL CT 8.9 K/uL; LYMPHOCYTE COUNT 0.7 K/uL (1.0-2.8); MCH 26.6 PG (29.0-34.0); MCV 88.5 FL (83-99); MEAN PLAT.VOLUME 10.3 uM^3 (9.5-12.4); MONOCYTE (%) 3.5 % (3-12); MONOCYTE COUNT 0.4 K/uL (0-0.8); NEUTROPHIL (%) 89.1 % (45-76); NEUTROPHIL COUNT 8.9 K/uL (1.8-6.4); PLATELET COUNT 246 K/uL (156-360); RBC DIS.WIDTH-CV 16.9 % (11.8-14.6); RBC DIS.WIDTH-SD 53.2 % (39-53); RED BLOOD COUNT 3.31 M/uL (3.80-5.20)
[2016-12-19 08:23] LABS: ANION GAP 7 MEQ/L (2-14); CHLORIDE 105 MEQ/L (99-109); GFR ESTIMATE (CALCULATED) > 59 mL/min/; GLUCOSE 93 mg/dL (70-99); POTASSIUM 4.4 MEQ/L (3.7-5.4); SAMPLE HEMOLYSIS CHECK 0; SAMPLE ICTERIC CHECK 0; SAMPLE LIPEMIA CHECK 0; SODIUM 141 MEQ/L (136-147); UREA NITROGEN (BUN) 26 mg/dL (9-23)
[2016-12-19 17:49] LABS: POINT-OF-CARE METER ID UU14174217
[2016-12-19 21:55] LABS: POINT-OF-CARE METER ID UU14174217
[2016-12-20] VITALS (19 sets, daily range): BP systolic 113–155; BP diastolic 35–78
[2016-12-20 13:45] LABS: BASE EXCESS 0.6 mEq/L (-3 to +3); BICARBONATE 28.5 mEq/L (22-26); CARBOXY HGB 2.1 % (0-5); COMMENTS - BLOOD GASES +C; DEVICE HHFNC; FI02 100 %; METHEMOGLOBIN 1.4 % (0-1.5); O2 FLOW 60 L/MIN; PCO2 65 mm Hg (35-45); PO2 64 mm Hg (80-100); SITE LB; TOTAL RESP RATE 18 resp/min
[2016-12-20 13:46] LABS: pH 7.25 (7.35-7.45)
[2016-12-20 15:44] LABS: EOSINOPHIL (%) 0 % (0-5); HEMATOCRIT 32.8 % (36.0-46.0); IMMATURE GRANULOCYTE COUNT 0.1 K/uL; INSTRUMENT ABS NEUTROPHIL CT 6.3 K/uL; LYMPHOCYTE COUNT 0.6 K/uL (1.0-2.8); MCH 26.2 PG (29.0-34.0); MCHC 29.3 G/DL (30.0-36.0); MCV 89.6 FL (83-99); MEAN PLAT.VOLUME 10.6 uM^3 (9.5-12.4); MONOCYTE (%) 4.7 % (3-12); MONOCYTE COUNT 0.3 K/uL (0-0.8); NEUTROPHIL (%) 86.4 % (45-76); NEUTROPHIL COUNT 6.3 K/uL (1.8-6.4); PLATELET COUNT 257 K/uL (156-360); RBC DIS.WIDTH-CV 17.3 % (11.8-14.6); RBC DIS.WIDTH-SD 54.2 % (39-53); RED BLOOD COUNT 3.66 M/uL (3.80-5.20); WHITE BLOOD COUNT 7.3 K/uL (4.1-10.2)
[2016-12-20 16:09] LABS: ANION GAP 10 MEQ/L (2-14); CHLORIDE 107 MEQ/L (99-109); POTASSIUM 4.3 MEQ/L (3.7-5.4); SAMPLE HEMOLYSIS CHECK 0; SAMPLE ICTERIC CHECK 0; SAMPLE LIPEMIA CHECK 0; SODIUM 142 MEQ/L (136-147)
[2016-12-20 16:14] LABS: GFR ESTIMATE (CALCULATED) > 59 mL/min/; UREA NITROGEN (BUN) 35 mg/dL (9-23)
[2016-12-20 16:16] LABS: GLUCOSE 155 mg/dL (70-99)
[2016-12-20 17:49] LABS: POINT-OF-CARE METER ID UU13113803; POINT-OF-CARE USER ID 606021424
[2016-12-20 18:09] LABS: BASE EXCESS 2.4 mEq/L (-3 to +3); CARBOXY HGB 1.8 % (0-5); METHEMOGLOBIN 1.1 % (0-1.5); pH 7.33 (7.35-7.45)
[2016-12-20 18:10] LABS: CONTINUOUS POS AIRWAY PRESSURE 5 cm H2O; DEVICE PB980; FI02 70 %; MODE NIV; PCO2 55 mm Hg (35-45); PO2 78 mm Hg (80-100); PRES. SUPPORT 14 CM/H2O; SITE RB +C; TOTAL RESP RATE 18 resp/min
[2016-12-21] VITALS (22 sets, daily range): BP systolic 83–187; BP diastolic 41–113
[2016-12-21 06:16] LABS: EOSINOPHIL (%) 0 % (0-5); HEMATOCRIT 32.2 % (36.0-46.0); IMMATURE GRANULOCYTE (%) 0.6 % (0.0-0.7); IMMATURE GRANULOCYTE COUNT 0.1 K/uL; INSTRUMENT ABS NEUTROPHIL CT 11.8 K/uL; LYMPHOCYTE COUNT 0.8 K/uL (1.0-2.8); MCH 26.5 PG (29.0-34.0); MCHC 30.1 G/DL (30.0-36.0); MEAN PLAT.VOLUME 10.2 uM^3 (9.5-12.4); MONOCYTE (%) 3.9 % (3-12); MONOCYTE COUNT 0.5 K/uL (0-0.8); NEUTROPHIL (%) 89.2 % (45-76); NEUTROPHIL COUNT 11.8 K/uL (1.8-6.4); PLATELET COUNT 282 K/uL (156-360); RBC DIS.WIDTH-CV 17.1 % (11.8-14.6); RBC DIS.WIDTH-SD 52.7 % (39-53); RED BLOOD COUNT 3.66 M/uL (3.80-5.20)
[2016-12-21 06:23] LABS: WHITE BLOOD COUNT 13.3 K/uL (4.1-10.2)
[2016-12-21 07:05] LABS: ANION GAP 8 MEQ/L (2-14); CHLORIDE 110 MEQ/L (99-109); GFR ESTIMATE (CALCULATED) > 59 mL/min/; POTASSIUM 3.7 MEQ/L (3.7-5.4); SAMPLE HEMOLYSIS CHECK 0; SAMPLE ICTERIC CHECK 0; SAMPLE LIPEMIA CHECK 0; SODIUM 147 MEQ/L (136-147); UREA NITROGEN (BUN) 35 mg/dL (9-23)
[2016-12-21 07:06] LABS: GLUCOSE 57 mg/dL (70-99)
[2016-12-21 12:38] LABS: POINT-OF-CARE METER ID UU14162636
[2016-12-21 16:45] LABS: POINT-OF-CARE METER ID UU13113731
[2016-12-21 22:47] LABS: POINT-OF-CARE METER ID UU13113731
[2016-12-22] VITALS (14 sets, daily range): BP systolic 113–183; BP diastolic 61–90
[2016-12-22 10:12] LABS: POINT-OF-CARE METER ID UU13113803
[2016-12-22 10:47] LABS: EOSINOPHIL (%) 0 % (0-5); HEMATOCRIT 28.5 % (36.0-46.0); IMMATURE GRANULOCYTE (%) 0.5 % (0.0-0.7); IMMATURE GRANULOCYTE COUNT 0.1 K/uL; INSTRUMENT ABS NEUTROPHIL CT 9.3 K/uL; LYMPHOCYTE COUNT 0.5 K/uL (1.0-2.8); MCH 26.9 PG (29.0-34.0); MCHC 30.2 G/DL (30.0-36.0); MCV 89.1 FL (83-99); MEAN PLAT.VOLUME 10.9 uM^3 (9.5-12.4); MONOCYTE (%) 2.4 % (3-12); MONOCYTE COUNT 0.2 K/uL (0-0.8); NEUTROPHIL (%) 92.2 % (45-76); NEUTROPHIL COUNT 9.3 K/uL (1.8-6.4); PLATELET COUNT 240 K/uL (156-360); RBC DIS.WIDTH-CV 17.6 % (11.8-14.6); RBC DIS.WIDTH-SD 54.7 % (39-53); WHITE BLOOD COUNT 10.1 K/uL (4.1-10.2)
[2016-12-22 11:10] LABS: ANION GAP 16 MEQ/L (2-14); CHLORIDE 107 MEQ/L (99-109); GFR ESTIMATE (CALCULATED) > 59 mL/min/; POTASSIUM 3.7 MEQ/L (3.7-5.4); SAMPLE HEMOLYSIS CHECK 0; SAMPLE ICTERIC CHECK 0; SAMPLE LIPEMIA CHECK 0; SODIUM 147 MEQ/L (136-147); UREA NITROGEN (BUN) 43 mg/dL (9-23)
[2016-12-22 11:18] LABS: GLUCOSE 244 mg/dL (70-99)
== END 2016-12-22 18:14 | DRG 189 ==
LOC: EME 10:51 → 5SOUTH 14:22 → EDOF 14:22 → 4WEST 14:22 → 5SOUTH 16:10 → 4WEST 12-19 00:32
PROVIDERS: Emergency Medicine; Internal Medicine; Internal Medicine Critical Care Medicine; Internal Medicine Pulmonary Disease
DX: J96.21 Acute and chronic respiratory failure with hypoxia (principal); J44.0 Chronic obstructive pulmonary disease with (acute) lower respiratory infection; J44.1 Chronic obstructive pulmonary disease with (acute) exacerbation; Z99.81 Dependence on supplemental oxygen; J18.9 Pneumonia, unspecified organism; J84.10 Pulmonary fibrosis, unspecified; D63.8 Anemia in other chronic diseases classified elsewhere; Z51.5 Encounter for palliative care; Z66 Do not resuscitate; E11.65 Type 2 diabetes mellitus with hyperglycemia; I73.9 Peripheral vascular disease, unspecified; I25.10 Atherosclerotic heart disease of native coronary artery without angina pectoris; Z95.1 Presence of aortocoronary bypass graft; Z87.891 Personal history of nicotine dependence; I08.1 Rheumatic disorders of both mitral and tricuspid valves; I10 Essential (primary) hypertension; I25.5 Ischemic cardiomyopathy; L89.150 Pressure ulcer of sacral region, unstageable; L89.310 Pressure ulcer of right buttock, unstageable; B02.9 Zoster without complications; T81.89XA Other complications of procedures, not elsewhere classified, initial encounter; Y83.8 Other surgical procedures as the cause of abnormal reaction of the patient, or of later complication, without mention of misadventure at the time of the procedure
CPT/HCPCS: 36600; 71010; 71020; 80048; 80053; 80202; 82803; 82948; 83605; 83735; 84100; 84484; 85025; 85027; 85610; 85730; 87040; 87070; 87205; 87449; 87502; 87641; 93005; 94002; 94003; 94640; 94640 76; 94667; 94668; 94799; 97530 GO; 99202; 99281; 99285; J0456; J1630; J1650; J1815; J1940; J2060; J2543; J2920; J2930; J3370; J7030; J7040; J7050; J7517; S0028